=== PATIENT | male | born 1980 | race Caucasian/White ===

== ENCOUNTER → 2016-02-20 | Outpatient (CLI) | payer OTHER ==
[~2016-02-20] MED LIST: /DULO30CA OR; ADDE30CA PO; ADDE5TAB5 PO; ALLE25CA OR; AMPH10TA PO; ASPI32ECTA PO; BACL10TA2 PO; CELE-19 PO; CEPH500C PO; CLEO150C PO; CODE30TA3 PO; CYCL10TA PO; CYMB60CA3 PO; DEXT10TA2 PO; DILA4TAB PO; DIVA500T3 PO; DOCU10CA PO; DULO20CA OR; DULO30CA PO; ESTA2TAB PO; EXCETAB80 PO; GEMF600T PO; HYDR50CA2 PO; IBUP600T26 PO; IMIT6INJ SC; IMIT6KIT2 SC; LUNE2TAB OR; MELO7.5S PO; MELOPOW XX; METH75TA PO; NORC10TA2 PO; OXYC-517 PO; OXYC20TA21 PO; OXYC40TA12 PO; PAIN CREAM TOP; PAIN TOP; PERC10TA17 PO; PERC5TAB8 OR; PERC7.5T3 PO; PRAZ2CAP PO; ROBA750T4 PO; SENN-22 PO; SKEL-29 PO; SOMA350T PO; TRAM50TA2 OR; TRAZ50TA4 PO; TRIA-15 PO; TYLE325T5 PO; VALI10TA PO; VITA-171 PO; ZANA4TAB PO; [UNRECOGNIZED DRUG - CODE] PO; [UNRECOGNIZED DRUG - OTHER] OR; mobic OR
--- NOTE | 2016-02-27 00:44 | ECWPNPC ---
PATIENT NAME: SUSANNA CM : 1980 GENDER: MALE VISIT DATE: 02/20/2016 DISCHARGE DATE: 02/20/16 1534 VISIT LOCKED DATE TIME: PHYSICIAN: DURAN ALVES PHYSICIAN PAGER NO: TEXT [phone] [phone] RESOURCE: DURAN ALVES REASON FOR APPOINTMENT 1. NECK PAIN HISTORY OF PRESENT ILLNESS HISTORY OF PRESENT ILLNESS: PAIN THE PATIENT DESCRIBES THE PAIN... 35 YEAR OLD MALE PATIENT WITH HISTORY OF CHRONIC NECK PAIN. PATIENT DESCRIBES THE PAIN ACHING, BURNING, SHARP, STABBING, TENDER, THROBBING, SORE, SHOOTING, HAVING IT ALL THE TIME, AND IT COMES AND GOES WITH A PAIN SCORE OF 6/10. PATIENT REPORTS THAT SOMA HELPS WITH KEEPING THE MUSCLE SPASMS DOWN IN HIS BACK AREA. PATIENT REPORTS THAT HE NOW HAS A NEW PRIMARY CARE DOWN IN THE PR IN [place]. PATIENT INQUIRED WHETHER ANYTHING CAN BE DONE ABOUT THIS ARTERITIS. PATIENT REPORTS THAT HE HAS NUMBNESS IN HIS FEET AND HANDS. PATIENT STATES THAT SOMA ALSO HELPS HIM SLEEP AT NIGHT AND THE BUTRANS PATCH DOES HELP WITH KEEPING HIS PAIN LEVELS DOWN. PATIENT DENIES UNEXPLAINABLE WEIGHT LOSS, FEVER, CHILLS, NEW CHANGES ON HIS URINARY OR BOWEL CONTROL. FALL RISK SCREENING: SCREENING :NO FALLS IN THE PAST YEAR CURRENT MEDICATIONS TAKING SOMA 350 MG TABLET 1 TABLET NEEDED ORALLY BEFORE BEDTIME FOR SPASMS AND PAIN MDD1 TAKING TIZANIDINE HCL 2 MG TABLET 1 TABLET NEEDED ORALLY THREE TIMES A DAY FOR SPASMS AND PAIN MDD3 TAKING BUTRANS 5 MCG/HR PATCH WEEKLY 1 PATCH TO SKIN TRANSDERMAL ONCE PER WEEK TAKING IMITREX STATDOSE SYSTEM 6 MG/0.5ML SOLUTION AUTO-INJECTOR NEEDED AT ONSET OF A MIGRAINE, MAY REPEAT IN 2 HOURS SUBCUTANEOUS DAILY PRN TAKING REGLAN 5 MG TABLET ORALLY DIRECTED TAKING ROPINIROLE HCL 0.5 MG TABLET ORALLY BEFORE BEDTIME NOT-TAKING OXYCODONE HCL 5 MG CAPSULE 1 CAPSULE NEEDED ORALLY EVERY 4 HOURS NEEDED NOT-TAKING CUSTOM DO NOT USE OXYCODONE 10 MG TABLET 1-2 TABS P.O. Q6HR PRN NOT-TAKING OXYCODONE HCL 10 MG TABLET 1 ORALLY Q4H MDD 6 NOT-TAKING OXYCONTIN 40 MG TABLET EXTENDED RELEASE 12 HOUR 1 TABLET ORALLY TID MDD3 NOT-TAKING OXYCODONE HCL ER 40 MG TABLET ER 12 HOUR ABUSE-DETERRENT 1 TABLET ORALLY Q8H MDD3 NOT-TAKING OXYCODONE HCL ER 40 MG TABLET ER 12 HOUR ABUSE-DETERRENT 1 TABLET ORALLY EVERY 8 HRS MDD=3 CHRONIC PAIN MEDICATION LIST REVIEWED AND RECONCILED WITH THE PATIENT PAST MEDICAL HISTORY [place] [facility] [facility] S/P TBI () JUNE (NON-COMPLIANT WITH BIPAP 2/2 CLAUSTROPHOBIA) OD 09/22-- ADMITTED MRSA ABDOMEN 12/24 ALLERGIES SULFA (FOR ALLERGY USE ONLY): ANAPHYLAXIS AND "TURNS INTO A LOBSTER": ALLERGY LYRICA: SUICIDAL IDEATION: SIDE EFFECTS TOPAMAX: PRECIPITATES NEPHROLITHIASIS: CONTRAINDICATION SURGICAL HISTORY PERFORATED L EAR DRUM AGE 13 R HAND GANGLION CYSTECTOMY 02/2001 PRK SURGERY HERBIE EYES 2004 R SHOULDER X 4 REPAIR (LAST 2 [facility] BY [address]. PECK) 03/18, 01/15, 08/19, 12/21 VASECTOMY 2012 RIGHT MENISCAL TEAR REPAIR 08/2015 FAMILY HISTORY NO FAMILY HISTORY DOCUMENTED. SOCIAL HISTORY GENERAL: TOBACCO USE ARE YOU A:NONSMOKER LEARNING BARRIERS / SPECIAL NEEDS ORIENTED TO PLAN OF CARE: PATIENT, PAIN MANAGEMENT PATIENT, ORIENTED TO PLAN OF CARE: PATIENT, PAIN MANAGEMENT PATIENT. NEW PATIENT PAIN DIARY TODAY'S VISITNOTES FROM 0-10, WHAT LEVEL IS YOUR PAIN TODAY?0 PAIN CLINIC PFS, CLERGY, PUBLIC HEALTH REFERRALS PFS REFERRAL NEEDED?NO CLERGY REFERRAL NEEDED?NO PUBLIC HEALTH REFERRAL NEEDED?NO WAS THE PROVIDER NOTIFIED OF ANY PERTINENT INFO?NO PFS REFERRAL NEEDED?NO CLERGY REFERRAL NEEDED?NO PUBLIC HEALTH REFERRAL NEEDED?NO WAS THE PROVIDER NOTIFIED OF ANY PERTINENT INFO?NO HOSPITALIZATION/MAJOR DIAGNOSTIC PROCEDURE BEHAVIORAL HEALTH ADMISSION X 3 (2 AT [facility] MOST RECENT D/C WAS 07/16/14 REVIEW OF SYSTEMS CONSTITUTIONAL: ANY CHANGE IN YOUR MEDICAL CONDITION? NO . CHILLS NO . FEVER NO . INFECTION: DO YOU HAVE NEW INFECTIONS? NO . DO YOU HAVE HISTORY OF MRSA? NO . MUSCULOSKELETAL: ANY NEW PATTERNS OF PAIN OR NUMBNESS? YES, PT STATES THAT PAIN IN ARMS IS PROGRESSING AND PAIN IN LEGS HAS STARTED WITH TINGLING. . GASTROENTEROLOGY: ANY NEW CHANGE IN BOWEL CONTROL? NO . GENITOURINARY: ANY NEW CHANGE IN BLADDER CONTROL? NO . IS THERE A CHANCE YOU COULD BE ? NO . HEMATOLOGY/LYMPH: DO YOU TAKE ANY BLOOD THINNERS? (FOR EXAMPLE- COUMADIN, PLAVIX, AGGRENOX, PLATEL, PRADAXA, OR XARELTO) NO . WHEN WAS YOUR LAST DOSE? DATE: TIME: . NEUROLOGY: HAVE YOU FALLEN IN THE PAST 6 MONTHS? NO . ANY NEW EXTREMITY NUMBNESS OR WEAKNESS? NO . CARDIOLOGY: DO YOU HAVE A PACEMAKER OR DEFIBRILLATOR? NO . RESPIRATORY: HAVE YOU BEEN SICK IN THE PAST WEEK? NO . FEVER NO . FLU LIKE SYMPTOMS? NO . COUGH NO . INTEGUMENTARY: DO YOU HAVE ANY RASHES OR OPEN SORES? NO . ALLERGIC/IMMUNO: ARE YOU ALLERGIC TO SHELLFISH OR IV DYE? NO . ANY NEW ALLERGIES? NO . PSYCHIATRIC: DO YOU HAVE THOUGHTS OF HURTING YOURSELF OR SOMEONE ELSE? NO . ARE YOU ABUSED, NEGLECTED, OR IN AN UNSAFE ENVIRONMENT? NO . ENDOCRINOLOGY: ARE YOU DIABETIC? NO . OTHER: DO YOU NEED ANY PRESCRIPTIONS? NO . IF YES, PLEASE LIST: ____ . ANY NEW PROBLEMS WITH YOUR MEDICATIONS? NO . WHEN DID YOU LAST EAT? ____ . WHEN DID YOU LAST DRINK? ____ . WHAT DID YOU LAST DRINK? ____ . NAME OF PERSON DRIVING YOU HOME? ____ . DO YOU HAVE ANY OTHER QUESTIONS OR CONCERNS YES, BUTRANS PATCH IS NOT WORKING ON PAIN RELIEF. PT STATES THAT HE IS HAVING AN ELECTIVE SURGERY- February - HAVING A PLATE PLACED ON LEFT SIDE OF HEAD TO HELP WITH HEARING, AT ENT GROUP AT [facility]. PT STATES THAT HE IS A CURRENT SMOKER AND REFUSES ANY SMOKING CESSATION COUSELING AT THIS TIME. . REVIEWED BY: PROVIDER: DURAN ALVES MD . VITAL SIGNS WT 208.3 LBS, HT 68 IN, BMI 31.67 INDEX, BP 157/90 MM HG, HR 88 /MIN, RR 16 /MIN, TEMP 98.4 F, OXYGEN SAT % 96, SAFE IN ENV? (Y/N) Y, NA INITIALS TL 1420, REVIEWED BY: MARICEL. EXAMINATION : PATIENT IS ALERT O X 3 AND COOPERATIVE. PATIENT IS ABLE TO BENT HIS BACK AT 15 DEGREES AND EXTEND AT 5 DEGREES. TENDERNESS IN THE THORACIC PARASPINAL MUSCLE GROUP WITH BANDS OF TISSUES, RESTRICTION OF MOVEMENT AND PRESENCE OF TRIGGER POINTS. MRI OF THE LUMBAR SPINE DONE ON 07/11/14 SHOWS FACET ARTHROPATHY. MRI OF THE CERVICAL SPINE DONE ON 07/11/14 SHOWS MULTILEVEL DEGENERATIVE DISC DISEASE. 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 CM'S PAIN MANAGEMENT CASE. PATIENT BROUGHT IN HIS MEDICATION BOTTLES TODAY. PATIENT ADVISED TO SEE HIS PRIMARY CASE ABOUT HIS ARTERITIS. PATIENT ADVISED TO SEE HIS NEUROLOGIST ABOUT THE NUMBNESS HE IS HAVING IN HIS UPPER AND LOWER EXTREMITIES. PATIENT WILL CONTINUE ON THE SAME MEDICATION REGIMEN BEFORE AND WILL RECEIVE REFILLS TODAY. PATIENT WILL FOLLOW UP WITH ME IN THREE WEEKS. INSTRUCTIONS WERE GIVEN, QUESTIONS WERE ANSWERED, PATIENT REPORTS UNDERSTANDING AND AGREES WITH THE PLAN. I, DANO HICKEY, DOCUMENTED THE ABOVE INFORMATION ACTING A SCRIBE FOR DR. ALVES. I HAVE REVIEWED THE ABOVE DOCUMENT, WRITTEN BY DANO HICKEY SCRIBCate AND I VERIFY THAT IT IS ACCURATE. OTHERS REFILL SOMA TABLET, 350 MG, 1 TABLET NEEDED, ORALLY, BEFORE BEDTIME FOR SPASMS AND PAIN MDD1, 30 DAY(S), 20, REFILLS 0 REFILL TIZANIDINE HCL TABLET, 2 MG, 1 TABLET NEEDED, ORALLY, THREE TIMES A DAY FOR SPASMS AND PAIN MDD3, 90 DAYS, 255, REFILLS 0 REFILL BUTRANS PATCH WEEKLY, 5 MCG/HR, 1 PATCH TO SKIN, TRANSDERMAL, ONCE PER WEEK, 30 DAY(S), 4, REFILLS 0 PROCEDURE CODES FA211 ESTABILISHED PATIENT [facility] FACILITY CHARGE G8730 PAIN ASSESS POS TOOL F/U PLAN DOC G8427 DOC MEDS VERIFIED W/PT OR RE FOLLOW UP 3 WEEKS ELECTRONICALLY SIGNED BY DURAN ALVES MD ON 02/26/2016 AT 01:24 PM EST DISCLAIMER : THIS IS A VISIT SUMMARY EXTRACTED FROM THE [employer] CHART. IT IS NOT A COPY OF THE [employer] PROGRESS NOTE. MTDD
== END ==
LOC: M PAIN 14:20
PROVIDERS: ATTEND Anesthesiology
DX: M79.1 Myalgia (principal); M47.812 Spondylosis without myelopathy or radiculopathy, cervical region; M47.813 Spondylosis without myelopathy or radiculopathy, cervicothoracic region; M54.2 Cervicalgia; G89.29 Other chronic pain; Z79.899 Other long term (current) drug therapy; Z88.2 Allergy status to sulfonamides; Z88.8 Allergy status to other drugs, medicaments and biological substances

== ENCOUNTER → 2016-03-18 | Outpatient (CLI) | payer OTHER ==
--- NOTE | 2016-03-19 00:03 | ECWPNPC ---
PATIENT NAME: SUSANNA CM : 1980 GENDER: MALE VISIT DATE: 03/18/2016 DISCHARGE DATE: 03/18/16 1038 VISIT LOCKED DATE TIME: PHYSICIAN: DURAN ALVES PHYSICIAN PAGER NO: [phone] [phone] RESOURCE: DURAN ALVES REASON FOR APPOINTMENT 1. NECK AND BACK PAIN HISTORY OF PRESENT ILLNESS HISTORY OF PRESENT ILLNESS: PAIN THE PATIENT DESCRIBES THE PAIN... 35 YEAR OLD MALE PATIENT WITH HISTORY OF CHRONIC NECK AND BACK PAIN. PATIENT DESCRIBES THE PAIN ACHING, SHARP, STABBING, TENDER, THROBBING, SORE, SHOOTING, AND HAVING IT ALL THE TIME WITH A PAIN SCORE OF 6/10. PATIENT REPORTS HAVING EAR RECONSTRUCTIVE SURGERY ON 03/09/16 TO REPAIR HEARING LOSS AND STATES THAT HE IS STILL IN PAIN FROM THE SURGERY. PATIENT IS CURRENTLY USING BUTRANS, SOMA, AND TIZANIDINE. MR. CM REPORTS THAT THE BUTRANS' AND THE SOMA HELPS TO RELIEVE THE PAIN BUT BELIEVES THE TIZANIDINE IS NOT HELPING MUCH IT WAS. PATIENT STATES THAT HIS NECK IS CONSTANTLY IN PAIN AND MEDICATIONS AT THIS TIME ARE THE ONLY THING THAT HELPS TO RELIEVE THE PAIN. PATIENT DENIES UNEXPLAINABLE WEIGHT LOSS, FEVER, CHILLS, NEW CHANGES ON HIS URINARY OR BOWEL CONTROL. FALL RISK SCREENING: SCREENING :NO FALLS IN THE PAST YEAR CURRENT MEDICATIONS TAKING SOMA 350 MG TABLET 1 TABLET NEEDED ORALLY BEFORE BEDTIME FOR SPASMS AND PAIN MDD1 TAKING TIZANIDINE HCL 2 MG TABLET 1 TABLET NEEDED ORALLY THREE TIMES A DAY FOR SPASMS AND PAIN MDD3 TAKING BUTRANS 5 MCG/HR PATCH WEEKLY 1 PATCH TO SKIN TRANSDERMAL ONCE PER WEEK TAKING IMITREX STATDOSE SYSTEM 6 MG/0.5ML SOLUTION AUTO-INJECTOR NEEDED AT ONSET OF A MIGRAINE, MAY REPEAT IN 2 HOURS SUBCUTANEOUS DAILY PRN TAKING REGLAN 5 MG TABLET ORALLY DIRECTED TAKING BOTOX 200 UNIT SOLUTION RECONSTITUTED 31 INJECTIONS Q 90 DAYS, NOTES: 02/27/16 AT ID TAKING ROPINIROLE HCL 0.5 MG TABLET ORALLY BEFORE BEDTIME NOT-TAKING OXYCODONE HCL 5 MG CAPSULE 1 CAPSULE NEEDED ORALLY EVERY 4 HOURS NEEDED NOT-TAKING CUSTOM DO NOT USE OXYCODONE 10 MG TABLET 1-2 TABS P.O. Q6HR PRN NOT-TAKING OXYCODONE HCL 10 MG TABLET 1 ORALLY Q4H MDD 6 NOT-TAKING OXYCONTIN 40 MG TABLET EXTENDED RELEASE 12 HOUR 1 TABLET ORALLY TID MDD3 NOT-TAKING OXYCODONE HCL ER 40 MG TABLET ER 12 HOUR ABUSE-DETERRENT 1 TABLET ORALLY Q8H MDD3 NOT-TAKING OXYCODONE HCL ER 40 MG TABLET ER 12 HOUR ABUSE-DETERRENT 1 TABLET ORALLY EVERY 8 HRS MDD=3 CHRONIC PAIN MEDICATION LIST REVIEWED AND RECONCILED WITH THE PATIENT PAST MEDICAL HISTORY [facility] ([place] [facility] S/P TBI () JUNE (NON-COMPLIANT WITH BIPAP 2/2 CLAUSTROPHOBIA) OD 09/22-- ADMITTED MRSA ABDOMEN 12/24 ALLERGIES SULFA (FOR ALLERGY USE ONLY): ANAPHYLAXIS AND "TURNS INTO A LOBSTER": ALLERGY LYRICA: SUICIDAL IDEATION: SIDE EFFECTS TOPAMAX: PRECIPITATES NEPHROLITHIASIS: CONTRAINDICATION SOCIAL HISTORY GENERAL: TOBACCO USE ARE YOU A:CURRENT SMOKER HOW MANY CIGARETTES A DAY DO YOU SMOKE?11-20 HOW SOON AFTER YOU WAKE UP DO YOU SMOKE YOUR FIRST CIGARETTE?6-30 MIN HOW OFTEN DO YOU SMOKE CIGARETTES?EVERY DAY PATIENT COUNSELED ON THE DANGERS OF TOBACCO USE AND URGED TO QUIT: COUNCELED ON THE IMPORTANCE OF QUTITING. ARE YOU INTERESTED IN QUITTING?THINKING ABOUT QUITTING HAS INFORMATION ALREADY. LEARNING BARRIERS / SPECIAL NEEDS ORIENTED TO PLAN OF CARE: PATIENT, PAIN MANAGEMENT PATIENT, ORIENTED TO PLAN OF CARE: PATIENT, PAIN MANAGEMENT PATIENT. NEW PATIENT PAIN DIARY TODAY'S VISITNOTES FROM 0-10, WHAT LEVEL IS YOUR PAIN TODAY?0 PAIN CLINIC PFS, CLERGY, PUBLIC HEALTH REFERRALS PFS REFERRAL NEEDED?NO CLERGY REFERRAL NEEDED?NO PUBLIC HEALTH REFERRAL NEEDED?NO WAS THE PROVIDER NOTIFIED OF ANY PERTINENT INFO?NO PFS REFERRAL NEEDED?NO CLERGY REFERRAL NEEDED?NO PUBLIC HEALTH REFERRAL NEEDED?NO WAS THE PROVIDER NOTIFIED OF ANY PERTINENT INFO?NO REVIEW OF SYSTEMS CONSTITUTIONAL: ANY CHANGE IN YOUR MEDICAL CONDITION? YES, SURGERY LEFT EAR 03/09/16 AT THE ID IN [place] . CHILLS NO . FEVER NO . INFECTION: DO YOU HAVE NEW INFECTIONS? NO . DO YOU HAVE HISTORY OF MRSA? NO . MUSCULOSKELETAL: ANY NEW PATTERNS OF PAIN OR NUMBNESS? YES, LEFT EAR DUE TO SURGERY . GASTROENTEROLOGY: ANY NEW CHANGE IN BOWEL CONTROL? NO . GENITOURINARY: ANY NEW CHANGE IN BLADDER CONTROL? NO . IS THERE A CHANCE YOU COULD BE ? NO . HEMATOLOGY/LYMPH: DO YOU TAKE ANY BLOOD THINNERS? (FOR EXAMPLE- COUMADIN, PLAVIX, AGGRENOX, PLATEL, PRADAXA, OR XARELTO) NO . WHEN WAS YOUR LAST DOSE? DATE: TIME: . NEUROLOGY: HAVE YOU FALLEN IN THE PAST 6 MONTHS? YES, LATE JAN. OR EARLY FEB. FELL DOWN STAIRS. BUMPED HIS HEAD ON A CHAIR, NO LOSS OF CONSCIOUSNESS . ANY NEW EXTREMITY NUMBNESS OR WEAKNESS? NO . CARDIOLOGY: DO YOU HAVE A PACEMAKER OR DEFIBRILLATOR? NO . RESPIRATORY: HAVE YOU BEEN SICK IN THE PAST WEEK? NO . FEVER NO . FLU LIKE SYMPTOMS? NO . COUGH NO . INTEGUMENTARY: DO YOU HAVE ANY RASHES OR OPEN SORES? YES, HEALING INCISION BEHIND LEFT EAR . ALLERGIC/IMMUNO: ARE YOU ALLERGIC TO SHELLFISH OR IV DYE? NO . ANY NEW ALLERGIES? NO . PSYCHIATRIC: DO YOU HAVE THOUGHTS OF HURTING YOURSELF OR SOMEONE ELSE? NO . ARE YOU ABUSED, NEGLECTED, OR IN AN UNSAFE ENVIRONMENT? NO . ENDOCRINOLOGY: ARE YOU DIABETIC? NO . OTHER: DO YOU NEED ANY PRESCRIPTIONS? YES, FAIZA AND DES . IF YES, PLEASE LIST: ____ . ANY NEW PROBLEMS WITH YOUR MEDICATIONS? NO . WHEN DID YOU LAST EAT? ____ . WHEN DID YOU LAST DRINK? ____ . WHAT DID YOU LAST DRINK? ____ . NAME OF PERSON DRIVING YOU HOME? ____ . DO YOU HAVE ANY OTHER QUESTIONS OR CONCERNS YES, TIZANIDINE DOESN'T SEEM TO BE WORKING&NBSP;. REVIEWED BY: PROVIDER: DURAN ALVES MD . VITAL SIGNS WT 231.4 LBS, HT 68 IN, BMI 35.18 INDEX, BP 126/92 MM HG, HR 97 /MIN, RR 16 /MIN, TEMP 97.1 F, OXYGEN SAT % 97, NA INITIALS TL 0845, REVIEWED BY: ADPT WEIGHED ON SCALE-TL. EXAMINATION : PATIENT IS ALERT O X 3 AND COOPERATIVE. PATIENT IS ABLE TO BENT HIS BACK AT 15 DEGREES AND EXTEND AT 5 DEGREES. BANDS OF TISSUE, RESTRICTION OF MOVEMENT AND PRESENCE OF TRIGGER POINTS IN THE CERVICAL AREA. TENDERNESS IN THE THORACIC PARASPINAL MUSCLE GROUP WITH BANDS OF TISSUES, RESTRICTION OF MOVEMENT AND PRESENCE OF TRIGGER POINTS. MRI OF THE LUMBAR SPINE DONE ON 07/11/14 SHOWS FACET ARTHROPATHY. MRI OF THE CERVICAL SPINE DONE ON 07/11/14 SHOWS MULTILEVEL DEGENERATIVE DISC DISEASE. 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 WITHOUT MYELOPATHY OR RADICULOPATHY, CERVICOTHORACIC REGION - M47.813 SPONDYLOSIS WITHOUT MYELOPATHY OR RADICULOPATHY, LUMBAR REGION - M47.816 SPONDYLOSIS WITHOUT MYELOPATHY OR RADICULOPATHY, LUMBOSACRAL REGION - M47.817 CHRONIC PAIN SYNDROME - G89.4 TREATMENT MYALGIA REFILL TIZANIDINE HCL TABLET, 4 MG, 1 TABLET NEEDED, ORALLY, THREE TIMES A DAY FOR SPASMS AND PAIN MDD3, 30 DAYS, 90, REFILLS 2 REFILL SOMA TABLET, 350 MG, 1 TABLET NEEDED, ORALLY, BEFORE BEDTIME FOR SPASMS AND PAIN MDD1, 30 DAY(S), 20, REFILLS 0 REFILL BUTRANS PATCH WEEKLY, 7.5 MCG/HR, 1 PATCH TO SKIN, TRANSDERMAL, ONCE PER WEEK, 30 DAY(S), 4, REFILLS 0 NOTES: WE DISCUSSED SEVERAL ISSUES WITH MR. CM'S PAIN MANAGEMENT CASE. PATIENT WILL INCREASE THE BUTRANS' PATCH TO 7.5 DUE TO THE PATIENT REPORTING THAT IT DOES NOT HAVE THE SAME BENEFITS IT DID FROM WHEN HE ORIGINALLY STARTED. MR. CM WILL ALSO INCREASE THE TIZANIDINE TO 4 MG DUE TO THE PATIENT STATING THAT HIS MUSCLE SPASMS HAVE SLOWLY INCREASED. PATIENT BROUGHT MEDICATIONS TO TODAY'S VISIT. PATIENT DENIES ABUSE OF ANY MEDICATION, DENIES USE OF ILLEGAL SUBSTANCES, AND STATES THAT HE IS ONLY USING THE MEDICATION FOR PAIN MANAGEMENT. URINE TOXICOLOGY REPORT DONE ON 09/2015 SHOWS CONSISTENT RESULTS WITH THE PATIENT'S MEDICATION LIST. PATIENT REPORTS HAVING A LOT OF PAIN IN HIS LOWER BACK. AFTER VIEWING THE MRI AND WHERE THE PATIENT'S PAIN IS LOCATED I BELIEVE THE PATIENT WOULD BENEFIT FROM A LUMBAR FACET BLOCK. WE DISCUSSED THE RISKS, BENEFITS, AND ALTNERATIVES OF THE INJECTION AND THE PATIENT WOULD LIKE TO PROCEED. INSTRUCTIONS WERE GIVEN, QUESTIONS WERE ANSWERED, PATIENT REPORTS UNDERSTANDING AND AGREES WITH THE PLAN. I, ARIA CARDENAS, DOCUMENTED THE ABOVE INFORMATION ACTING A SCRIBE FOR DR. ALVES. I HAVE REVIEWED THE ABOVE DOCUMENT, WRITTEN BY ARIA BARBOZA AND I VERIFY THAT IT IS ACCURATE. PROCEDURE CODES FA211 ESTABILISHED PATIENT [facility] FACILITY CHARGE G8427 DOC MEDS VERIFIED W/PT OR RE G4311 PAIN ASSESS POS TOOL F/U PLAN DOC FOLLOW UP 3 WEEKS ELECTRONICALLY SIGNED BY DURAN ALVES MD ON 03/18/2016 AT 07:31 PM EST DISCLAIMER : THIS IS A VISIT SUMMARY EXTRACTED FROM THE [employer] CHART. IT IS NOT A COPY OF THE [employer] PROGRESS NOTE. [facility]
== END ==
LOC: M PAIN 08:40
PROVIDERS: ATTEND Anesthesiology
DX: Z09 Encounter for follow-up examination after completed treatment for conditions other than malignant neoplasm (principal); G89.29 Other chronic pain; G89.4 Chronic pain syndrome; M79.1 Myalgia; M47.812 Spondylosis without myelopathy or radiculopathy, cervical region; M47.813 Spondylosis without myelopathy or radiculopathy, cervicothoracic region; M47.816 Spondylosis without myelopathy or radiculopathy, lumbar region; M47.817 Spondylosis without myelopathy or radiculopathy, lumbosacral region; F43.10 Post-traumatic stress disorder, unspecified; G47.33 Obstructive sleep apnea (adult) (pediatric); F17.200 Nicotine dependence, unspecified, uncomplicated; Z88.2 Allergy status to sulfonamides; Z88.8 Allergy status to other drugs, medicaments and biological substances; Z79.891 Long term (current) use of opiate analgesic; Z79.899 Other long term (current) drug therapy; Z86.14 Personal history of Methicillin resistant Staphylococcus aureus infection; Z87.820 Personal history of traumatic brain injury; Z91.82 Personal history of military deployment

== ENCOUNTER → 2016-04-16 | Outpatient (CLI) | payer MEDICARE, OTHER ==
--- NOTE | 2016-04-25 23:20 | ECWPNPC ---
PATIENT NAME: SUSANNA CM : 1980 GENDER: MALE VISIT DATE: 04/16/2016 DISCHARGE DATE: 04/16/16 1542 VISIT LOCKED DATE TIME: PHYSICIAN: DURAN ALVES PHYSICIAN PAGER NO: TEXT JR [phone] RESOURCE: DURAN ALVES REASON FOR APPOINTMENT 1. NECK LOW BACK HISTORY OF PRESENT ILLNESS HISTORY OF PRESENT ILLNESS: PAIN THE PATIENT DESCRIBES THE PAIN... 35 YEAR OLD MALE PATIENT WITH HISTORY OF CHRONIC NECK AND BACK PAIN. PATIENT DESCRIBES THE PAIN ACHING, BURNING, SHARP, STABBING, TENDER, THROBBING, SORE, SHOOTING, IT COMES AND GOES, AND HAVING IT ALL THE TIME WITH A PAIN SCORE OF 4/10 ON TODAY'S VISIT. PATIENT REPORTS THAT HIS WHOLE BACK HURTS TODAY FROM THE NECK TO THE LOW BACK, AND THAT HIS RIGHT SHOULDER AND LEFT KNEE ALSO HURTS. PATIENT REPORTS THAT HE WILL HAVE HIS RIGHT SHOULDER MANIPULATED UNDER ANESTHESIA. PATIENT STATES THAT THE INCREASED DOSAGE OF TIZANIDINE HAS HELP WITH THE MUSCLE SPASMS AND PAIN. PATIENT REPORTS THAT HIS BUTRANS PATCH HAS A HARD TIME STAYING ON HIS BODY., PATIENT DENIES UNEXPLAINABLE WEIGHT LOSS, FEVER, CHILLS, NEW CHANGES ON HIS URINARY OR BOWEL CONTROL. FALL RISK SCREENING: SCREENING :ONE FALL WITHOUT INJURY IN THE PAST YEAR CURRENT MEDICATIONS TAKING IMITREX STATDOSE SYSTEM 6 MG/0.5ML SOLUTION AUTO-INJECTOR NEEDED AT ONSET OF A MIGRAINE, MAY REPEAT IN 2 HOURS SUBCUTANEOUS DAILY PRN TAKING REGLAN 5 MG TABLET ORALLY DIRECTED TAKING BOTOX 200 UNIT SOLUTION RECONSTITUTED 31 INJECTIONS Q 90 DAYS, NOTES: 02/27/16 AT [place] TAKING ROPINIROLE HCL 0.5 MG TABLET ORALLY BEFORE BEDTIME TAKING TIZANIDINE HCL 4 MG TABLET 1 TABLET NEEDED ORALLY THREE TIMES A DAY FOR SPASMS AND PAIN MDD3 TAKING SOMA 350 MG TABLET 1 TABLET NEEDED ORALLY BEFORE BEDTIME FOR SPASMS AND PAIN MDD1 TAKING BUTRANS 7.5 MCG/HR PATCH WEEKLY 1 PATCH TO SKIN TRANSDERMAL ONCE PER WEEK TAKING REMERON 30 MG TABLET 1 TAB ORALLY DAILY TAKING CLONIDINE HCL 0.2 MG TABLET 1 TABLET ORALLY TWICE A DAY NOT-TAKING CUSTOM DO NOT USE OXYCODONE 10 MG TABLET 1-2 TABS P.O. Q6HR PRN NOT-TAKING OXYCODONE HCL 5 MG CAPSULE 1 CAPSULE NEEDED ORALLY EVERY 4 HOURS NEEDED NOT-TAKING OXYCODONE HCL 10 MG TABLET 1 ORALLY Q4H MDD 6 NOT-TAKING OXYCONTIN 40 MG TABLET EXTENDED RELEASE 12 HOUR 1 TABLET ORALLY TID MDD3 NOT-TAKING OXYCODONE HCL ER 40 MG TABLET ER 12 HOUR ABUSE-DETERRENT 1 TABLET ORALLY Q8H MDD3 NOT-TAKING OXYCODONE HCL ER 40 MG TABLET ER 12 HOUR ABUSE-DETERRENT 1 TABLET ORALLY EVERY 8 HRS MDD=3 CHRONIC PAIN DISCONTINUED CLONIDINE HCL DISCONTINUED CLONIDINE HCL (ANALGESIA) DISCONTINUED CLONIDINE HCL DISCONTINUED CLONIDINE HCL (ANALGESIA) DISCONTINUED REMERON MEDICATION LIST REVIEWED AND RECONCILED WITH THE PATIENT PAST MEDICAL HISTORY [place] ([place] [facility]) S/P TBI () JUNE (NON-COMPLIANT WITH BIPAP 03/12 CLAUSTROPHOBIA) OD 09/22-- ADMITTED MRSA ABDOMEN 12/24 ALLERGIES SULFA (FOR ALLERGY USE ONLY): ANAPHYLAXIS AND "TURNS INTO A LOBSTER": ALLERGY LYRICA: SUICIDAL IDEATION: SIDE EFFECTS TOPAMAX: PRECIPITATES NEPHROLITHIASIS: CONTRAINDICATION SURGICAL HISTORY PERFORATED L EAR DRUM AGE 13 R HAND GANGLION CYSTECTOMY 02/2001 PRK SURGERY HERBIE EYES 2004 R SHOULDER X 4 REPAIR (LAST 2 AT [facility] BY DR. PECK) 03/18, 01/15, 08/19, 12/21 VASECTOMY 2013 RIGHT MENISCAL TEAR REPAIR 08/2015 FAMILY HISTORY NO FAMILY HISTORY DOCUMENTED. SOCIAL HISTORY GENERAL: TOBACCO USE ARE YOU A:CURRENT SMOKER PATIENT COUNSELED ON THE DANGERS OF TOBACCO USE AND URGED TO QUIT:04/16/2016 ARE YOU INTERESTED IN QUITTING?THINKING ABOUT QUITTING COUNSELED THE PATIENT ON SMOKING CESSATION, EDUCATION [id number]/09/2017 LEARNING BARRIERS / SPECIAL NEEDS ORIENTED TO PLAN OF CARE: PATIENT, PAIN MANAGEMENT PATIENT, ORIENTED TO PLAN OF CARE: PATIENT, PAIN MANAGEMENT PATIENT, ORIENTED TO PLAN OF CARE: PATIENT, PAIN MANAGEMENT PATIENT, ORIENTED TO PLAN OF CARE: PATIENT, PAIN MANAGEMENT PATIENT. NEW PATIENT PAIN DIARY TODAY'S VISITNOTES FROM 0-10, WHAT LEVEL IS YOUR PAIN TODAY?0 PAIN CLINIC PFS, CLERGY, PUBLIC HEALTH REFERRALS PFS REFERRAL NEEDED?NO CLERGY REFERRAL NEEDED?NO PUBLIC HEALTH REFERRAL NEEDED?NO WAS THE PROVIDER NOTIFIED OF ANY PERTINENT INFO?NO PFS REFERRAL NEEDED?NO CLERGY REFERRAL NEEDED?NO PUBLIC HEALTH REFERRAL NEEDED?NO WAS THE PROVIDER NOTIFIED OF ANY PERTINENT INFO?NO PFS REFERRAL NEEDED?NO CLERGY REFERRAL NEEDED?NO PUBLIC HEALTH REFERRAL NEEDED?NO WAS THE PROVIDER NOTIFIED OF ANY PERTINENT INFO?NO PFS REFERRAL NEEDED?NO CLERGY REFERRAL NEEDED?NO PUBLIC HEALTH REFERRAL NEEDED?NO WAS THE PROVIDER NOTIFIED OF ANY PERTINENT INFO?NO HOSPITALIZATION/MAJOR DIAGNOSTIC PROCEDURE BEHAVIORAL HEALTH ADMISSION X 3 (2 AT [facility], [facility] [place]) MOST RECENT D/C WAS 07/16/14 REVIEW OF SYSTEMS CONSTITUTIONAL: ANY CHANGE IN YOUR MEDICAL CONDITION? NO . CHILLS NO . FEVER NO . INFECTION: DO YOU HAVE NEW INFECTIONS? NO . DO YOU HAVE HISTORY OF MRSA? NO . MUSCULOSKELETAL: ANY NEW PATTERNS OF PAIN OR NUMBNESS? NO . GASTROENTEROLOGY: ANY NEW CHANGE IN BOWEL CONTROL? NO . GENITOURINARY: ANY NEW CHANGE IN BLADDER CONTROL? NO . IS THERE A CHANCE YOU COULD BE ? NO . HEMATOLOGY/LYMPH: DO YOU TAKE ANY BLOOD THINNERS? (FOR EXAMPLE- COUMADIN, PLAVIX, AGGRENOX, PLATEL, PRADAXA, OR XARELTO) NO . WHEN WAS YOUR LAST DOSE? DATE: TIME: . NEUROLOGY: HAVE YOU FALLEN IN THE PAST 6 MONTHS? YES, FELL DOWN STAIRS . ANY NEW EXTREMITY NUMBNESS OR WEAKNESS? NO . CARDIOLOGY: DO YOU HAVE A PACEMAKER OR DEFIBRILLATOR? NO . RESPIRATORY: HAVE YOU BEEN SICK IN THE PAST WEEK? NO . FEVER NO . FLU LIKE SYMPTOMS? NO . COUGH NO . INTEGUMENTARY: DO YOU HAVE ANY RASHES OR OPEN SORES? NO . ALLERGIC/IMMUNO: ARE YOU ALLERGIC TO SHELLFISH OR IV DYE? NO . ANY NEW ALLERGIES? NO . PSYCHIATRIC: DO YOU HAVE THOUGHTS OF HURTING YOURSELF OR SOMEONE ELSE? NO . ARE YOU ABUSED, NEGLECTED, OR IN AN UNSAFE ENVIRONMENT? NO . ENDOCRINOLOGY: ARE YOU DIABETIC? NO . OTHER: DO YOU NEED ANY PRESCRIPTIONS? YES . IF YES, PLEASE LIST: ____BUTRANS,SOMA, TIZANTIDINE . ANY NEW PROBLEMS WITH YOUR MEDICATIONS? NO . WHEN DID YOU LAST EAT? ____ . WHEN DID YOU LAST DRINK? ____ . WHAT DID YOU LAST DRINK? ____ . NAME OF PERSON DRIVING YOU HOME? ____ . DO YOU HAVE ANY OTHER QUESTIONS OR CONCERNS NO . REVIEWED BY: PROVIDER: DURAN ALVES MD . VITAL SIGNS WT 236 LBS, HT 68 IN, BMI 35.88 INDEX, BP 127/88 MM HG, HR 80 /MIN, RR 16 /MIN, TEMP 97.6 F, OXYGEN SAT % 93%, NA INITIALS SC 14:02, REVIEWED BY: VD. EXAMINATION : PATIENT IS ALERT O X 3 AND COOPERATIVE. PATIENT HAS TENDERNESS IN THE BILATERAL LUMBAR FACET JOINTS. THERE IS TENDERNESS IN THE CERVICAL PARASPINAL MUSCLE GROUP. MRI OF THE LUMBAR SPINE DONE ON 07/11/14 SHOWS FACET ARTHROPATHY. MRI OF THE CERVICAL SPINE DONE ON 07/11/14 SHOWS MULTILEVEL DEGENERATIVE DISC DISEASE. 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 CM'S PAIN MANAGEMENT CASE. AT THIS TIME I WILL REFILL TIZANIDINE, SOMA, AND BUTRANS PATCH FOR THE PATIENT TODAY. ALSO I WILL WRITE A SCRIPT FOR [facility]. AFTER REVIEWING THE MRI'S AND EXAMINING THE PATIENT, HE IS A GOOD CANDIDATE FOR A LUMBAR FACET BLOCK. WE DISCUSSED THE RISK, BENEFITS, AND ALTERNATIVES AND THE PATIENT WOULD LIKE TO PROCEED. PATIENT WILL BE BOOKED PENDING APPROVAL. PATIENT TO FOLLOW UP WITH ME IN 2 WEEKS. INSTRUCTIONS WERE GIVEN, QUESTIONS WERE ANSWERED, PATIENT REPORTS UNDERSTANDING AND AGREES WITH THE PLAN. I, DANO HICKEY, DOCUMENTED THE ABOVE INFORMATION ACTING A SCRIBE FOR DR. ALVES. I HAVE REVIEWED THE ABOVE DOCUMENT, WRITTEN BY DANO BARBOZA AND I VERIFY THAT IT IS ACCURATE. OTHERS START NEXCARE TEGADERM 4"X4-3/4" MISCELLANEOUS, -, DIRECTED, TOPICALLY, WEEKLY, 30 DAY(S), 1, REFILLS 1 PROCEDURE CODES FA211 ESTABILISHED PATIENT [facility] CHARGE G8730 PAIN ASSESS POS TOOL F/U PLAN DOC G8427 DOC MEDS VERIFIED W/PT OR RE DISPOSITION & COMMUNICATION FOLLOW UP 2 WEEKS ELECTRONICALLY SIGNED BY DURAN ALVES MD ON 04/25/2016 AT 09:24 PM EDT DISCLAIMER : THIS IS A VISIT SUMMARY EXTRACTED FROM THE [email or web address] & See CHART. IT IS NOT A COPY OF THE [email or web address] & See PROGRESS NOTE. CHRIST
== END ==
LOC: M PAIN 13:40
PROVIDERS: ATTEND Anesthesiology
DX: Z09 Encounter for follow-up examination after completed treatment for conditions other than malignant neoplasm (principal); G89.29 Other chronic pain; M79.1 Myalgia; M54.5 Low back pain; M47.816 Spondylosis without myelopathy or radiculopathy, lumbar region; M47.817 Spondylosis without myelopathy or radiculopathy, lumbosacral region; M47.812 Spondylosis without myelopathy or radiculopathy, cervical region; M47.813 Spondylosis without myelopathy or radiculopathy, cervicothoracic region; F43.10 Post-traumatic stress disorder, unspecified; G47.33 Obstructive sleep apnea (adult) (pediatric); F17.200 Nicotine dependence, unspecified, uncomplicated; Z87.820 Personal history of traumatic brain injury; Z88.2 Allergy status to sulfonamides; Z88.8 Allergy status to other drugs, medicaments and biological substances; Z79.891 Long term (current) use of opiate analgesic; Z79.899 Other long term (current) drug therapy

== ENCOUNTER → 2016-05-13 | Outpatient (CLI) | payer OTHER, MEDICARE ==
[~2016-05-13] MED LIST changes: -OXYC40TA12 PO; +OXYC40TA13 PO
--- NOTE | 2016-05-26 00:38 | ECWPNPC ---
PATIENT NAME: SUSANNA CM : 1980 GENDER: MALE VISIT DATE: 05/13/2016 DISCHARGE DATE: 05/13/16 1618 VISIT LOCKED DATE TIME: PHYSICIAN: DURAN ALVES PHYSICIAN PAGER NO: XYTF MW [phone] RESOURCE: DURAN ALVES REASON FOR APPOINTMENT 1. NECK/BACK PAIN HISTORY OF PRESENT ILLNESS GENERAL: 36 YEAR OLD MALE PATIENT WITH HISTORY OF CHRONIC LOW BACK AND NECK PAIN. PATIENT DESCRIBES THE PAIN ACHING, BURNING, SHARP, STABBING, THROBBING, SORE, SHOOTING, AND HAVING IT ALL THE TIME WITH A PAIN SCORE OF 5/10. PATIENT IS CURRENTLY USING BUTRANS PATCH, SOMA, AND TIZANIDINE TO AID IN PAIN RELIEF. MR. CM STATES THAT THE MEDICATION AIDS IN PAIN RELIEF BUT HE STILL HAS QUITE A BIT OF PAIN. PATIENT REPORTS THAT SINCE USING THE BUTRANS PATCH HE HAS HAD LESS MIGRAINES. PATIENT STATES THAT ANY TYPE OF ACTIVITY INCREASES THE PAIN IN HIS NECK AND LOWER BACK INCLUDING WALKING, STANDING, AND WALKING UP STAIRS. MR. CM REPORTS HAVING A MANIPULATION SURGERY ON Wednesday05/18/16 ON THE SHOULDER. PATIENT DENIES UNEXPLAINABLE WEIGHT LOSS, FEVER, CHILLS, NEW CHANGES ON HIS URINARY OR BOWEL CONTROL. HISTORY OF PRESENT ILLNESS: PAIN THE PATIENT DESCRIBES THE PAIN... FALL RISK SCREENING: SCREENING :NO FALLS IN THE PAST YEAR CURRENT MEDICATIONS TAKING NEXCARE TEGADERM 4"X4-3/4" - MISCELLANEOUS DIRECTED TOPICALLY WEEKLY TAKING TIZANIDINE HCL 4 MG TABLET 1 TABLET NEEDED ORALLY THREE TIMES A DAY FOR SPASMS AND PAIN MDD3 TAKING SOMA 350 MG TABLET 1 TABLET NEEDED ORALLY BEFORE BEDTIME FOR SPASMS AND PAIN MDD1 TAKING BUTRANS 7.5 MCG/HR PATCH WEEKLY 1 PATCH TO SKIN TRANSDERMAL ONCE PER WEEK TAKING IMITREX STATDOSE SYSTEM 6 MG/0.5ML SOLUTION AUTO-INJECTOR NEEDED AT ONSET OF A MIGRAINE, MAY REPEAT IN 2 HOURS SUBCUTANEOUS DAILY PRN TAKING REGLAN 5 MG TABLET ORALLY DIRECTED TAKING BOTOX 200 UNIT SOLUTION RECONSTITUTED 31 INJECTIONS Q 90 DAYS, NOTES: 02/27/16 AT [place] TAKING ROPINIROLE HCL 0.5 MG TABLET ORALLY BEFORE BEDTIME NOT-TAKING REMERON 30 MG TABLET 1 TAB ORALLY DAILY NOT-TAKING CLONIDINE HCL 0.2 MG TABLET 1 TABLET ORALLY TWICE A DAY NOT-TAKING CUSTOM DO NOT USE OXYCODONE 10 MG TABLET 1-2 TABS P.O. Q6HR PRN NOT-TAKING OXYCODONE HCL 5 MG CAPSULE 1 CAPSULE NEEDED ORALLY EVERY 4 HOURS NEEDED NOT-TAKING OXYCODONE HCL 10 MG TABLET 1 ORALLY Q4H MDD 6 NOT-TAKING OXYCONTIN 40 MG TABLET EXTENDED RELEASE 12 HOUR 1 TABLET ORALLY TID MDD3 NOT-TAKING OXYCODONE HCL ER 40 MG TABLET ER 12 HOUR ABUSE-DETERRENT 1 TABLET ORALLY Q8H MDD3 NOT-TAKING OXYCODONE HCL ER 40 MG TABLET ER 12 HOUR ABUSE-DETERRENT 1 TABLET ORALLY EVERY 8 HRS MDD=3 CHRONIC PAIN MEDICATION LIST REVIEWED AND RECONCILED WITH THE PATIENT PAST MEDICAL HISTORY [facility] ([place] [facility] S/P TBI () JUNE (NON-COMPLIANT WITH BIPAP / CLAUSTROPHOBIA) OD 09/22-- ADMITTED MRSA ABDOMEN 12/24 ALLERGIES SULFA (FOR ALLERGY USE ONLY): ANAPHYLAXIS AND "TURNS INTO A LOBSTER": ALLERGY LYRICA: SUICIDAL IDEATION: SIDE EFFECTS TOPAMAX: PRECIPITATES NEPHROLITHIASIS: CONTRAINDICATION SURGICAL HISTORY PERFORATED L EAR DRUM AGE 13 R HAND GANGLION CYSTECTOMY 02/2001 PRK SURGERY HERBIE EYES 2004 R SHOULDER X 4 REPAIR (LAST 2 AT [facility] BY DR. PECK) 03/18, 01/15, 08/19, 12/21 VASECTOMY 2012 RIGHT MENISCAL TEAR REPAIR 08/2015 LEFT EAR BONE REPLACEMENT 03/09/2016 FAMILY HISTORY FATHER: 65 YRS, DIAGNOSED WITH CANCER MOTHER: ALIVE FATHER ON 05/04/16, HX OF [place], OF [place]. SOCIAL HISTORY GENERAL: TOBACCO USE ARE YOU A:CURRENT SMOKER PATIENT COUNSELED ON THE DANGERS OF TOBACCO USE AND URGED TO QUIT:05/13/2016 ARE YOU INTERESTED IN QUITTING?THINKING ABOUT QUITTING COUNSELED THE PATIENT ON SMOKING CESSATION, EDUCATION [id number]/05/2017 CAFFEINE CAFFEINE USE?YES HOW OFTEN AND HOW MUCH? SEVERAL PER DAY PAIN CLINIC PFS, CLERGY, PUBLIC HEALTH REFERRALS PFS REFERRAL NEEDED?NO CLERGY REFERRAL NEEDED?NO PUBLIC HEALTH REFERRAL NEEDED?NO WAS THE PROVIDER NOTIFIED OF ANY PERTINENT INFO?YES REVIEWED BY: MARICEL. PATIENT: ____. HOSPITALIZATION/MAJOR DIAGNOSTIC PROCEDURE BEHAVIORAL HEALTH ADMISSION X 3 (2 [facility] MOST RECENT D/C WAS 07/16/14 REVIEW OF SYSTEMS CONSTITUTIONAL: ANY CHANGE IN YOUR MEDICAL CONDITION? NO . CHILLS NO . FEVER NO . INFECTION: DO YOU HAVE NEW INFECTIONS? NO . DO YOU HAVE HISTORY OF MRSA? NO . MUSCULOSKELETAL: ANY NEW PATTERNS OF PAIN OR NUMBNESS? NO . GASTROENTEROLOGY: ANY NEW CHANGE IN BOWEL CONTROL? NO . GENITOURINARY: ANY NEW CHANGE IN BLADDER CONTROL? NO . IS THERE A CHANCE YOU COULD BE ? NO . HEMATOLOGY/LYMPH: DO YOU TAKE ANY BLOOD THINNERS? (FOR EXAMPLE- COUMADIN, PLAVIX, AGGRENOX, PLATEL, PRADAXA, OR XARELTO) NO . WHEN WAS YOUR LAST DOSE? DATE: TIME: . NEUROLOGY: HAVE YOU FALLEN IN THE PAST 6 MONTHS? YES, PT STATES THAT HE FELL DOWN STAIRS AT HOME, NO REPORT TO ED . ANY NEW EXTREMITY NUMBNESS OR WEAKNESS? NO . CARDIOLOGY: DO YOU HAVE A PACEMAKER OR DEFIBRILLATOR? NO . RESPIRATORY: HAVE YOU BEEN SICK IN THE PAST WEEK? NO . FEVER NO . FLU LIKE SYMPTOMS? NO . COUGH NO . INTEGUMENTARY: DO YOU HAVE ANY RASHES OR OPEN SORES? NO . ALLERGIC/IMMUNO: ARE YOU ALLERGIC TO SHELLFISH OR IV DYE? NO . ANY NEW ALLERGIES? NO . PSYCHIATRIC: DO YOU HAVE THOUGHTS OF HURTING YOURSELF OR SOMEONE ELSE? NO . ARE YOU ABUSED, NEGLECTED, OR IN AN UNSAFE ENVIRONMENT? NO . ENDOCRINOLOGY: ARE YOU DIABETIC? NO . OTHER: DO YOU NEED ANY PRESCRIPTIONS? YES, BUTRANS, SOMA AND TIZANIDINE SCRIPTS FILLED . IF YES, PLEASE LIST: ____ . ANY NEW PROBLEMS WITH YOUR MEDICATIONS? NO . WHEN DID YOU LAST EAT? ____ . WHEN DID YOU LAST DRINK? ____ . WHAT DID YOU LAST DRINK? ____ . NAME OF PERSON DRIVING YOU HOME? ____ . DO YOU HAVE ANY OTHER QUESTIONS OR CONCERNS PT STATES THAT HE IS A CURRENT SMOKER, REFUSING ANY SMOKING CESSATION COUSELING AT THIS TIME. PT STATES THAT HE IS GOING TO ASK DANNA SOLER FOR CHANTIX SCRIPT. PT STATES THAT HE IS SCHEDULED FOR SHOULDER MANIPULATION ON Wednesday05/18/16 . REVIEWED BY: PROVIDER: . VITAL SIGNS WT 230.0 LBS, HT 68 IN, BMI 34.97 INDEX, BP 129/88 MM HG, HR 104 /MIN, RR 16 /MIN, TEMP 98.6 F, OXYGEN SAT % 96%, SAFE IN ENV? (Y/N) Y, NA INITIALS TL 1420, REVIEWED BY: MARICEL. EXAMINATION GENERAL: PATIENT IS ALERT O X 3 AND COOPERATIVE. PATIENT HAS TENDERNESS IN THE BILATERAL LUMBAR FACET JOINTS. THERE IS TENDERNESS IN THE CERVICAL PARASPINAL MUSCLE GROUP. MRI OF THE LUMBAR SPINE DONE ON 07/11/14 SHOWS FACET ARTHROPATHY. MRI OF THE CERVICAL SPINE DONE ON 07/11/14 SHOWS MULTILEVEL DEGENERATIVE DISC DISEASE. ASSESSMENTS MYALGIA - M79.1 (PRIMARY) LOW BACK PAIN - M54.5 SPONDYLOSIS WITHOUT MYELOPATHY OR RADICULOPATHY, LUMBAR REGION - M47.816 SPONDYLOSIS WITHOUT MYELOPATHY OR RADICULOPATHY, LUMBOSACRAL REGION - M47.817 TREATMENT MYALGIA REFILL SOMA TABLET, 350 MG, 1 TABLET NEEDED, ORALLY (CODE D FOR CHRONIC PAIN), BEFORE BEDTIME FOR SPASMS AND PAIN MDD1, 60 DAYS, 40, REFILLS 0 REFILL TIZANIDINE HCL TABLET, 4 MG, 1 TABLET NEEDED, ORALLY, THREE TIMES A DAY FOR SPASMS AND PAIN MDD3, 30 DAYS, 90, REFILLS 2 REFILL BUTRANS PATCH WEEKLY, 7.5 MCG/HR, 1 PATCH TO SKIN, TRANSDERMAL CODE D FOR CHRONIC PAIN), ONCE PER WEEK, 60 DAYS, 8, REFILLS 0 START TIZANIDINE HCL TABLET, 4 MG, 1 TABLET NEEDED, ORALLY NEEDED, THREE TIMES A DAY FOR SPASMS MDD3, 90 DAYS, 270, REFILLS 0 NOTES: WE DISCUSSED SEVERAL ISSUES WITH MR. CM'S PAIN MANAGEMENT CASE. AT THIS TIME THE PATIENT WILL CONTINUE WITH THE SAME MEDICATION REGIME BEFORE. PATIENT REPORTS THE MEDICATION KEEPING HIM MOBILE AND FUNCTIONAL AT THIS TIME. PATIENT DENIES ABUSE OF ANY MEDICATION, DENIES USE OF ILLEGAL SUBSTANCE, AND STATES THAT HE IS ONLY USING THE MEDICATION FOR PAIN MANAGEMENT. URINE TOXICOLOGY REPORT DONE ON 09/27/2015 SHOWS CONSISTENT RESULTS WITH THE PATIENTS MEDICATION LIST. MR. CM REPORTS HAVING A MANIPULATION DONE ON HIS SHOULDER THE FOLLOWING WEDNESDAY. PATIENT STATES THAT AT THIS TIME HIS LOWER BACK IS IN SEVERE PAIN. AFTER VIEWING THE PATIENT AND WHERE THE PAIN IS LOCATED I WOULD LIKE TO PROCEED WITH A LUMBAR FACET BLOCK. WE DISCUSSED THE RISKS, BENENFITS, AND ALTNERATIVES OF THE INJECTION AND THE PATIENT WOULD LIKE TO PROCEED AT THIS TIME. INSTRUCTIONS WERE GIVEN, QUESTIONS WERE ANSWERED, PATIENT REPORTS UNDERSTANDING AND AGREES WITH THE PLAN. I, ARIA CARDENAS, DOCUMENTED THE ABOVE INFORMATION ACTING A SCRIBE FOR DR. ALEVS. I HAVE REVIEWED THE ABOVE DOCUMENT, WRITTEN BY ARIA BARBOZA AND I VERIFY THAT IT IS ACCURATE. PROCEDURE CODES G8427 DOC MEDS VERIFIED W/PT OR RE G8730 PAIN ASSESS POS TOOL F/U PLAN DOC FA211 ESTABILISHED PATIENT [facility] CHARGE DISPOSITION & COMMUNICATION FOLLOW UP 4 WEEKS ELECTRONICALLY SIGNED BY DURAN ALVES MD ON 05/25/2016 AT 12:46 PM EDT DISCLAIMER : THIS IS A VISIT SUMMARY EXTRACTED FROM THE [employer] [facility] CHART. IT IS NOT A COPY OF THE [employer] [facility] PROGRESS NOTE. MTDD
== END ==
LOC: M PAIN 14:20
PROVIDERS: ATTEND Anesthesiology
DX: M79.1 Myalgia (principal); M54.5 Low back pain; M47.816 Spondylosis without myelopathy or radiculopathy, lumbar region; M47.817 Spondylosis without myelopathy or radiculopathy, lumbosacral region; M54.2 Cervicalgia; G89.29 Other chronic pain; Z79.891 Long term (current) use of opiate analgesic; Z79.899 Other long term (current) drug therapy; F17.210 Nicotine dependence, cigarettes, uncomplicated; Z88.2 Allergy status to sulfonamides; Z88.8 Allergy status to other drugs, medicaments and biological substances

== ENCOUNTER → 2016-08-12 | Outpatient (CLI) | payer MEDICARE, OTHER ==
[~2016-08-12] MED LIST changes: +ADDE1TAB14 PO; -ADDE30CA PO; +ADDE30CA3 PO; -ADDE5TAB5 PO; +ASPI325T24 PO; -ASPI32ECTA PO; -CELE-19 PO; +CELE1CAP4 PO; -DILA4TAB PO; +DILA4TAB13 PO; +IBUP-1022 PO; -IBUP600T26 PO; -NORC10TA2 PO; +NORC10TA21 PO; +NUVI250T5 PO; -OXYC20TA21 PO; +OXYC20TA40 PO; -OXYC40TA13 PO; +OXYC40TA29 PO; -PERC10TA17 PO; +PERC10TA26 PO; +PERC7.5T11 PO; -PERC7.5T3 PO; -SKEL-29 PO; +SKEL800T97 PO; +TRAZ50TA11 PO; -TRAZ50TA4 PO; -TRIA-15 PO; +TRIA0.2571 PO; -[UNRECOGNIZED DRUG - CODE] PO
--- NOTE | 2016-08-23 23:58 | ECWPNPC ---
PATIENT NAME: SUSANNA CM : 1980 GENDER: MALE VISIT DATE: 08/12/2016 DISCHARGE DATE: 08/12/16 1428 VISIT LOCKED DATE TIME: PHYSICIAN: DURAN ALVES PHYSICIAN PAGER NO: TEXT OY [phone] RESOURCE: DURAN ALVES REASON FOR APPOINTMENT 1. NECK/BACK PAIN HISTORY OF PRESENT ILLNESS HISTORY OF PRESENT ILLNESS: PAIN THE PATIENT DESCRIBES THE PAIN... 36 YEAR OLD MALE PATIENT WITH HISTORY OF CHRONIC LOW BACK AND NECK PAIN. PATIENT DESCRIBES THE PAIN ACHING, BURNING, SHARP, STABBING, THROBBING, SORE, SHOOTING, AND HAVING IT ALL THE TIME WITH A PAIN SCORE OF 5/10. PATIENT IS CURRENTLY USING BUTRANS PATCH, SOMA, AND TIZANIDINE TO AID IN PAIN RELIEF. MR. MC STATES THAT THE MEDICATION AIDS IN PAIN RELIEF BUT HE STILL HAS QUITE A BIT OF PAIN. PATIENT REPORTS THAT SINCE USING THE BUTRANS PATCH HE HAS HAD LESS MIGRAINES. PATIENT STATES THAT ANY TYPE OF ACTIVITY INCREASES THE PAIN IN HIS NECK AND LOWER BACK INCLUDING WALKING, STANDING, AND WALKING UP STAIRS. PATIENT DENIES UNEXPLAINABLE WEIGHT LOSS, FEVER, CHILLS, NEW CHANGES ON HIS URINARY OR BOWEL CONTROL. FALL RISK SCREENING: SCREENING :NO FALLS IN THE PAST YEAR CURRENT MEDICATIONS TAKING NEXCARE TEGADERM 4"X4-3/4" - MISCELLANEOUS DIRECTED TOPICALLY WEEKLY TAKING IMITREX STATDOSE SYSTEM 6 MG/0.5ML SOLUTION AUTO-INJECTOR NEEDED AT ONSET OF A MIGRAINE, MAY REPEAT IN 2 HOURS SUBCUTANEOUS DAILY PRN TAKING REGLAN 5 MG TABLET ORALLY DIRECTED TAKING BOTOX 200 UNIT SOLUTION RECONSTITUTED 31 INJECTIONS Q 90 DAYS, NOTES: 02/27/16 AT [place] TAKING ROPINIROLE HCL 0.5 MG TABLET ORALLY BEFORE BEDTIME TAKING TIZANIDINE HCL 4 MG TABLET 1 TABLET NEEDED ORALLY NEEDED THREE TIMES A DAY FOR SPASMS MDD3 TAKING TIZANIDINE HCL 4 MG TABLET 1 TABLET NEEDED ORALLY THREE TIMES A DAY FOR SPASMS AND PAIN MDD3 TAKING BUTRANS 7.5 MCG/HR PATCH WEEKLY 1 PATCH TO SKIN TRANSDERMAL CODE D FOR CHRONIC PAIN) ONCE PER WEEK TAKING SOMA 350 MG TABLET 1 TABLET NEEDED ORALLY (CODE D FOR CHRONIC PAIN) BEFORE BEDTIME FOR SPASMS AND PAIN MDD1 TAKING CHANTIX 1 MG TABLET 1 TABLET ORALLY TWICE A DAY NOT-TAKING REMERON 30 MG TABLET 1 TAB ORALLY DAILY NOT-TAKING CLONIDINE HCL 0.2 MG TABLET 1 TABLET ORALLY TWICE A DAY NOT-TAKING CUSTOM DO NOT USE OXYCODONE 10 MG TABLET 1-2 TABS P.O. Q6HR PRN NOT-TAKING OXYCODONE HCL 5 MG CAPSULE 1 CAPSULE NEEDED ORALLY EVERY 4 HOURS NEEDED NOT-TAKING OXYCODONE HCL 10 MG TABLET 1 ORALLY Q4H MDD 6 NOT-TAKING OXYCONTIN 40 MG TABLET EXTENDED RELEASE 12 HOUR 1 TABLET ORALLY TID MDD3 NOT-TAKING OXYCODONE HCL ER 40 MG TABLET ER 12 HOUR ABUSE-DETERRENT 1 TABLET ORALLY Q8H MDD3 NOT-TAKING OXYCODONE HCL ER 40 MG TABLET ER 12 HOUR ABUSE-DETERRENT 1 TABLET ORALLY EVERY 8 HRS MDD=3 CHRONIC PAIN MEDICATION LIST REVIEWED AND RECONCILED WITH THE PATIENT PAST MEDICAL HISTORY [place] [facility] [facility] S/P TBI () JUNE (NON-COMPLIANT WITH BIPAP / CLAUSTROPHOBIA) OD 09/22-- ADMITTED MRSA ABDOMEN 12/24 ALLERGIES SULFA (FOR ALLERGY USE ONLY): ANAPHYLAXIS AND "TURNS INTO A LOBSTER": ALLERGY LYRICA: SUICIDAL IDEATION: SIDE EFFECTS TOPAMAX: PRECIPITATES NEPHROLITHIASIS: CONTRAINDICATION SURGICAL HISTORY PERFORATED L EAR DRUM AGE 13 R HAND GANGLION CYSTECTOMY 02/2001 PRK SURGERY HERBIE EYES 2004 R SHOULDER X 4 REPAIR (LAST 2 AT [facility] BY [address]. PECK) 03/18, 01/15, 08/19, 12/21 VASECTOMY 2012 RIGHT MENISCAL TEAR REPAIR 08/2015 LEFT EAR BONE REPLACEMENT 03/09/2016 HOSPITALIZATION/MAJOR DIAGNOSTIC PROCEDURE BEHAVIORAL HEALTH ADMISSION X 3 (2 AT [facility] MOST RECENT D/C WAS 07/16/14 OR FOR DEVIATED NASAL SEPTUM (5 DAY SUPPLY OF 5MG OXY GIVEN AND TOOK OVER 10 DAYS). JULY 10 REVIEW OF SYSTEMS REVIEWED BY: PROVIDER: DURAN ALVES MD . CONSTITUTIONAL: ANY CHANGE IN YOUR MEDICAL CONDITION? NO . CHILLS NO . FEVER NO . INFECTION: DO YOU HAVE NEW INFECTIONS? NO . DO YOU HAVE HISTORY OF MRSA? NO . MUSCULOSKELETAL: ANY NEW PATTERNS OF PAIN OR NUMBNESS? NO . GASTROENTEROLOGY: ANY NEW CHANGE IN BOWEL CONTROL? NO . GENITOURINARY: ANY NEW CHANGE IN BLADDER CONTROL? NO . IS THERE A CHANCE YOU COULD BE ? NO . HEMATOLOGY/LYMPH: DO YOU TAKE ANY BLOOD THINNERS? (FOR EXAMPLE- COUMADIN, PLAVIX, AGGRENOX, PLATEL, PRADAXA, OR XARELTO) NO . WHEN WAS YOUR LAST DOSE? DATE: TIME: . NEUROLOGY: HAVE YOU FALLEN IN THE PAST 6 MONTHS? NO . ANY NEW EXTREMITY NUMBNESS OR WEAKNESS? NO . CARDIOLOGY: DO YOU HAVE A PACEMAKER OR DEFIBRILLATOR? NO . RESPIRATORY: HAVE YOU BEEN SICK IN THE PAST WEEK? NO . FEVER NO . FLU LIKE SYMPTOMS? NO . COUGH NO . INTEGUMENTARY: DO YOU HAVE ANY RASHES OR OPEN SORES? YES . ALLERGIC/IMMUNO: ARE YOU ALLERGIC TO SHELLFISH OR IV DYE? NO . ANY NEW ALLERGIES? NO . PSYCHIATRIC: DO YOU HAVE THOUGHTS OF HURTING YOURSELF OR SOMEONE ELSE? NO . ARE YOU ABUSED, NEGLECTED, OR IN AN UNSAFE ENVIRONMENT? NO . ENDOCRINOLOGY: ARE YOU DIABETIC? NO . OTHER: DO YOU NEED ANY PRESCRIPTIONS? YES . IF YES, PLEASE LIST: TIZANIDINE, SOMA, BUTRANS . ANY NEW PROBLEMS WITH YOUR MEDICATIONS? NO . WHEN DID YOU LAST EAT? ____ . WHEN DID YOU LAST DRINK? ____ . WHAT DID YOU LAST DRINK? ____ . NAME OF PERSON DRIVING YOU HOME? ____ . DO YOU HAVE ANY OTHER QUESTIONS OR CONCERNS MUSCLE SPASMS ARE WORSE. PAIN IS WORSE . VITAL SIGNS WT 231.4 LBS, HT 68 IN, BMI 35.18 INDEX, BP 144/96 MM HG, HR 97 /MIN, RR 16 /MIN, TEMP 97.7 F, OXYGEN SAT % 99%, NA INITIALS SC 13:13. EXAMINATION : PATIENT IS ALERT O X 3 AND COOPERATIVE. PATIENT HAS TENDERNESS IN THE BILATERAL LUMBAR FACET JOINTS. THERE IS TENDERNESS IN THE CERVICAL PARASPINAL MUSCLE GROUP. MRI OF THE LUMBAR SPINE DONE ON 07/11/14 SHOWS FACET ARTHROPATHY. MRI OF THE CERVICAL SPINE DONE ON 07/11/14 SHOWS MULTILEVEL DEGENERATIVE DISC DISEASE. ASSESSMENTS MYALGIA - M79.1 (PRIMARY) LOW BACK PAIN - M54.5 SPONDYLOSIS WITHOUT MYELOPATHY OR RADICULOPATHY, LUMBAR REGION - M47.816 SPONDYLOSIS WITHOUT MYELOPATHY OR RADICULOPATHY, LUMBOSACRAL REGION - M47.817 TREATMENT MYALGIA REFILL TIZANIDINE HCL TABLET, 4 MG, 1 TABLET NEEDED, ORALLY NEEDED, FOUR TIMES DAILY NEEDED FOR SPSMS AND PAIN MDD4, 30 DAY(S), 120, REFILLS 2 REFILL BUTRANS PATCH WEEKLY, 7.5 MCG/HR, 1 PATCH TO SKIN, TRANSDERMAL CODE D FOR CHRONIC PAIN), ONCE PER WEEK, 30 DAYS, 4, REFILLS 0 REFILL SOMA TABLET, 350 MG, 1 TABLET NEEDED, ORALLY (CODE D FOR CHRONIC PAIN), BEFORE BEDTIME FOR SPASMS AND PAIN MDD1, 30 DAYS, 30, REFILLS 0 NOTES: WE DISCUSSED SEVERAL ISSUES WITH MR. CM'S PAIN MANAGEMENT CASE. AT THIS TIME THE PATIENT WILL CONTINUE WITH THE SAME MEDICATION REGIME BEFORE. PATIENT REPORTS THE MEDICATION KEEPING HIM MOBILE AND FUNCTIONAL AT THIS TIME. PATIENT DENIES ABUSE OF ANY MEDICATION, DENIES USE OF ILLEGAL SUBSTANCE, AND STATES THAT HE IS ONLY USING THE MEDICATION FOR PAIN MANAGEMENT. URINE TOXICOLOGY REPORT DONE ON 09/27/2015 SHOWS CONSISTENT RESULTS WITH THE PATIENTS MEDICATION LIST. AT THIS TIME NOT INTERVENTIONS WILL BE HELD. PATIENT WILL RETURN TO THE CLINIC IN 6 WEEKS TO DISCUSS FURTHER OPTIONS. INSTRUCTIONS WERE GIVEN, QUESTIONS WERE ANSWERED, PATIENT REPORTS UNDERSTANDING AND AGREES WITH THE PLAN. I, ARIA CARDENAS, DOCUMENTED THE ABOVE INFORMATION ACTING A SCRIBE FOR DR. ALVES. I HAVE REVIEWED THE ABOVE DOCUMENT, WRITTEN BY ARIA BARBOZA AND I VERIFY THAT IT IS ACCURATE. PROCEDURE CODES FA211 ESTABILISHED PATIENT [facility] FACILITY CHARGE G8427 DOC MEDS VERIFIED W/PT OR RE G8730 PAIN ASSESS POS TOOL F/U PLAN DOC DISPOSITION & COMMUNICATION FOLLOW UP 6 WEEKS ELECTRONICALLY SIGNED BY DURAN ALVES MD ON 08/23/2016 AT 10:12 PM EDT DISCLAIMER : THIS IS A VISIT SUMMARY EXTRACTED FROM THE [employer] CHART. IT IS NOT A COPY OF THE [employer] PROGRESS NOTE. CHRIST
== END ==
LOC: M PAIN 12:40
PROVIDERS: ATTEND Anesthesiology
DX: M79.1 Myalgia (principal); M54.5 Low back pain; G89.29 Other chronic pain; M47.816 Spondylosis without myelopathy or radiculopathy, lumbar region; M47.817 Spondylosis without myelopathy or radiculopathy, lumbosacral region; Z79.899 Other long term (current) drug therapy; Z88.2 Allergy status to sulfonamides; Z88.8 Allergy status to other drugs, medicaments and biological substances

== ENCOUNTER → 2016-09-23 | Outpatient (CLI) | payer OTHER, MEDICARE ==
--- NOTE | 2016-10-13 00:07 | ECWPNPC ---
PATIENT NAME: SUSANNA CM : 1980 GENDER: MALE VISIT DATE: 09/23/2016 DISCHARGE DATE: 09/23/16 1519 VISIT LOCKED DATE TIME: PHYSICIAN: DURAN ALVES PHYSICIAN PAGER NO: TEXT BB [phone] RESOURCE: DURAN ALVES REASON FOR APPOINTMENT 1. NECK/BACK PAIN HISTORY OF PRESENT ILLNESS HISTORY OF PRESENT ILLNESS: PAIN THE PATIENT DESCRIBES THE PAIN... 36 YEAR OLD MALE PATIENT WITH HISTORY OF CHRONIC LOW BACK AND NECK PAIN. PATIENT DESCRIBES THE PAIN ACHING, BURNING, SHARP, STABBING, THROBBING, SORE, SHOOTING, AND HAVING IT ALL THE TIME WITH A PAIN SCORE OF 6/10. PATIENT IS CURRENTLY USING BUTRANS PATCH, SOMA, AND TIZANIDINE TO AID IN PAIN RELIEF. MR. CM STATES THAT THE MEDICATION AIDS IN PAIN RELIEF BUT HE STILL HAS QUITE A BIT OF PAIN. PATIENT REPORTS THAT SINCE USING THE BUTRANS PATCH HE HAS HAD LESS MIGRAINES. PATIENT STATES THAT ANY TYPE OF ACTIVITY INCREASES THE PAIN IN HIS NECK AND LOWER BACK INCLUDING WALKING, STANDING, AND WALKING UP STAIRS. PATIENT DENIES UNEXPLAINABLE WEIGHT LOSS, FEVER, CHILLS, NEW CHANGES ON HIS URINARY OR BOWEL CONTROL. FALL RISK SCREENING: SCREENING :NO FALLS IN THE PAST YEAR CURRENT MEDICATIONS TAKING NEXCARE TEGADERM 4"X4-3/4" - MISCELLANEOUS DIRECTED TOPICALLY WEEKLY TAKING IMITREX STATDOSE SYSTEM 6 MG/0.5ML SOLUTION AUTO-INJECTOR NEEDED AT ONSET OF A MIGRAINE, MAY REPEAT IN 2 HOURS SUBCUTANEOUS DAILY PRN TAKING REGLAN 5 MG TABLET ORALLY DIRECTED TAKING BOTOX 200 UNIT SOLUTION RECONSTITUTED 31 INJECTIONS Q 90 DAYS TAKING ROPINIROLE HCL 0.5 MG TABLET ORALLY BEFORE BEDTIME TAKING CHANTIX 1 MG TABLET 1 TABLET ORALLY TWICE A DAY TAKING TIZANIDINE HCL 4 MG TABLET 1 TABLET NEEDED ORALLY NEEDED FOUR TIMES DAILY NEEDED FOR SPSMS AND PAIN MDD4 TAKING BUTRANS 7.5 MCG/HR PATCH WEEKLY 1 PATCH TO SKIN TRANSDERMAL CODE D FOR CHRONIC PAIN) ONCE PER WEEK TAKING SOMA 350 MG TABLET 1 TABLET NEEDED ORALLY (CODE D FOR CHRONIC PAIN) BEFORE BEDTIME FOR SPASMS AND PAIN MDD1 TAKING TRAZODONE HCL 50 MG TABLET 1 TABLET AT BEDTIME NEEDED ORALLY ONCE A DAY NOT-TAKING TIZANIDINE HCL 4 MG TABLET 1 TABLET NEEDED ORALLY THREE TIMES A DAY FOR SPASMS AND PAIN MDD3 NOT-TAKING REMERON 30 MG TABLET 1 TAB ORALLY DAILY NOT-TAKING CLONIDINE HCL 0.2 MG TABLET 1 TABLET ORALLY TWICE A DAY NOT-TAKING CUSTOM DO NOT USE OXYCODONE 10 MG TABLET 1-2 TABS P.O. Q6HR PRN NOT-TAKING OXYCODONE HCL 5 MG CAPSULE 1 CAPSULE NEEDED ORALLY EVERY 4 HOURS NEEDED NOT-TAKING OXYCODONE HCL 10 MG TABLET 1 ORALLY Q4H MDD 6 NOT-TAKING OXYCONTIN 40 MG TABLET EXTENDED RELEASE 12 HOUR 1 TABLET ORALLY TID MDD3 NOT-TAKING OXYCODONE HCL ER 40 MG TABLET ER 12 HOUR ABUSE-DETERRENT 1 TABLET ORALLY Q8H MDD3 NOT-TAKING OXYCODONE HCL ER 40 MG TABLET ER 12 HOUR ABUSE-DETERRENT 1 TABLET ORALLY EVERY 8 HRS MDD=3 CHRONIC PAIN MEDICATION LIST REVIEWED AND RECONCILED WITH THE PATIENT PAST MEDICAL HISTORY [place] ([place] [facility]) S/P TBI () UJNE (NON-COMPLIANT WITH BIPAP / CLAUSTROPHOBIA) OD 09/22-- ADMITTED MRSA ABDOMEN 12/24 ALLERGIES SULFA (FOR ALLERGY USE ONLY): ANAPHYLAXIS AND "TURNS INTO A LOBSTER": ALLERGY LYRICA: SUICIDAL IDEATION: SIDE EFFECTS TOPAMAX: PRECIPITATES NEPHROLITHIASIS: CONTRAINDICATION SURGICAL HISTORY PERFORATED L EAR DRUM AGE 13 R HAND GANGLION CYSTECTOMY 02/2001 PRK SURGERY HERBIE EYES 2004 R SHOULDER X 4 REPAIR (LAST 2 AT [facility] BY DR. PECK) 03/18, 01/15, 08/19, 12/21 VASECTOMY 2012 RIGHT MENISCAL TEAR REPAIR 08/2015 LEFT EAR BONE REPLACEMENT 03/09/2016 HOSPITALIZATION/MAJOR DIAGNOSTIC PROCEDURE BEHAVIORAL HEALTH ADMISSION X 3 (2 AT [facility] MOST RECENT D/C WAS 07/16/14 OR FOR DEVIATED NASAL SEPTUM (5 DAY SUPPLY OF 5MG OXY GIVEN AND TOOK OVER 10 DAYS). JULY 10 REVIEW OF SYSTEMS REVIEWED BY: PROVIDER: DURAN ALVES MD . CONSTITUTIONAL: ANY CHANGE IN YOUR MEDICAL CONDITION? NO . CHILLS NO . FEVER NO . INFECTION: DO YOU HAVE NEW INFECTIONS? NO . DO YOU HAVE HISTORY OF MRSA? NO . MUSCULOSKELETAL: ANY NEW PATTERNS OF PAIN OR NUMBNESS? YES, BACK SPASMS ARE WORSE . GASTROENTEROLOGY: ANY NEW CHANGE IN BOWEL CONTROL? NO . GENITOURINARY: ANY NEW CHANGE IN BLADDER CONTROL? NO . IS THERE A CHANCE YOU COULD BE ? NO . HEMATOLOGY/LYMPH: DO YOU TAKE ANY BLOOD THINNERS? (FOR EXAMPLE- COUMADIN, PLAVIX, AGGRENOX, PLATEL, PRADAXA, OR XARELTO) NO . WHEN WAS YOUR LAST DOSE? DATE: TIME: . NEUROLOGY: HAVE YOU FALLEN IN THE PAST 6 MONTHS? NO . ANY NEW EXTREMITY NUMBNESS OR WEAKNESS? NO . CARDIOLOGY: DO YOU HAVE A PACEMAKER OR DEFIBRILLATOR? NO . RESPIRATORY: HAVE YOU BEEN SICK IN THE PAST WEEK? NO . FEVER NO . FLU LIKE SYMPTOMS? NO . COUGH NO . INTEGUMENTARY: DO YOU HAVE ANY RASHES OR OPEN SORES? NO . ALLERGIC/IMMUNO: ARE YOU ALLERGIC TO SHELLFISH OR IV DYE? NO . ANY NEW ALLERGIES? NO . PSYCHIATRIC: DO YOU HAVE THOUGHTS OF HURTING YOURSELF OR SOMEONE ELSE? NO . ARE YOU ABUSED, NEGLECTED, OR IN AN UNSAFE ENVIRONMENT? NO . ENDOCRINOLOGY: ARE YOU DIABETIC? NO . OTHER: DO YOU NEED ANY PRESCRIPTIONS? YES, BUTRANS PATCH, SOMA, TIZANIDINE . IF YES, PLEASE LIST: ____ . ANY NEW PROBLEMS WITH YOUR MEDICATIONS? NO . WHEN DID YOU LAST EAT? ____ . WHEN DID YOU LAST DRINK? ____ . WHAT DID YOU LAST DRINK? ____ . NAME OF PERSON DRIVING YOU HOME? ____ . DO YOU HAVE ANY OTHER QUESTIONS OR CONCERNS NO . VITAL SIGNS WT 225 LBS, HT 68 IN, BMI 34.21 INDEX, BP 129/84 MM HG, HR 86 /MIN, RR 16 /MIN, TEMP 98.4 F, OXYGEN SAT % 95%, NA INITIALS SC 13:47, REVIEWED BY: EM. EXAMINATION : PATIENT IS ALERT O X 3 AND COOPERATIVE. PATIENT HAS TENDERNESS IN THE BILATERAL LUMBAR FACET JOINTS. THERE IS TENDERNESS IN THE CERVICAL PARASPINAL MUSCLE GROUP. MRI OF THE LUMBAR SPINE DONE ON 07/11/14 SHOWS FACET ARTHROPATHY. MRI OF THE CERVICAL SPINE DONE ON 07/11/14 SHOWS MULTILEVEL DEGENERATIVE DISC DISEASE. ASSESSMENTS MYALGIA - M79.1 (PRIMARY) LOW BACK PAIN - M54.5 SPONDYLOSIS WITHOUT MYELOPATHY OR RADICULOPATHY, LUMBAR REGION - M47.816 SPONDYLOSIS WITHOUT MYELOPATHY OR RADICULOPATHY, LUMBOSACRAL REGION - M47.817 TREATMENT MYALGIA REFILL BUTRANS PATCH WEEKLY, 7.5 MCG/HR, 1 PATCH TO SKIN, TRANSDERMAL CODE D FOR CHRONIC PAIN), ONCE PER WEEK, 30 DAYS, 4, REFILLS 0 REFILL TIZANIDINE HCL TABLET, 4 MG, 1 TABLET NEEDED, ORALLY NEEDED, FOUR TIMES DAILY NEEDED FOR SPSMS AND PAIN MDD4, 30 DAY(S), 120, REFILLS 2 REFILL SOMA TABLET, 350 MG, 1 TABLET NEEDED, ORALLY (CODE D FOR CHRONIC PAIN), BEFORE BEDTIME FOR SPASMS AND PAIN MDD1, 30 DAYS, 30, REFILLS 0 NOTES: WE DISCUSSED SEVERAL ISSUES WITH MR. CM'S PAIN MANAGEMENT CASE. AT THIS TIME THE PATIENT WILL CONTINUE WITH THE SAME MEDICATION REGIME BEFORE. PATIENT REPORTS THE MEDICATION KEEPING HIM MOBILE AND FUNCTIONAL AT THIS TIME. PATIENT DENIES ABUSE OF ANY MEDICATION, DENIES USE OF ILLEGAL SUBSTANCE, AND STATES THAT HE IS ONLY USING THE MEDICATION FOR PAIN MANAGEMENT. URINE TOXICOLOGY REPORT DONE ON 09/27/2015 SHOWS CONSISTENT RESULTS WITH THE PATIENTS MEDICATION LIST. PATIENT WILL PERFORM A URINE TOXICOLOGY REPORT TODAY. AFTER VIEWING THE PATIENT'S MRI AND WHERE THE PATIENT STATES HIS WORST PAIN IS I WOULD LIKE TO MOVE FORWARD WITH A LUMBAR FACET BLOCK. WE DISCUSSED THE RISKS, BENENFITS, AND ALTNERATIVES OF THE INJECTION AND THE PATIENT WOULD LIKE TO PROCEED AT THIS TIME. PATIENT WILL RETURN TO THE CLINIC IN 2 MONTHS TO DISCUSS FURTHER OPTIONS. INSTRUCTIONS WERE GIVEN, QUESTIONS WERE ANSWERED, PATIENT REPORTS UNDERSTANDING AND AGREES WITH THE PLAN. I, ARIA CARDENAS, DOCUMENTED THE ABOVE INFORMATION ACTING A SCRIBE FOR DR. ALVES. I HAVE REVIEWED THE ABOVE DOCUMENT, WRITTEN BY ARIA BARBOZA AND I VERIFY THAT IT IS ACCURATE. PREVENTIVE MEDICINE PREPROCEDURE DIRECTIONS REVIEWED AND PT EXPRESSED UNDERSTANDING. PROCEDURE CODES FA211 ESTABILISHED PATIENT [facility] FACILITY CHARGE G8427 DOC MEDS VERIFIED W/PT OR RE G8761 PAIN ASSESS POS TOOL F/U PLAN DOC DISPOSITION & COMMUNICATION FOLLOW UP 3 WEEKS ELECTRONICALLY SIGNED BY DURAN ALVES MD ON 10/12/2016 AT 08:43 PM EDT DISCLAIMER : THIS IS A VISIT SUMMARY EXTRACTED FROM THE [employer] CHART. IT IS NOT A COPY OF THE [employer] PROGRESS NOTE. LEOBARDOD
== END ==
LOC: M PAIN 13:20
PROVIDERS: ATTEND Anesthesiology
DX: M79.1 Myalgia (principal); M54.5 Low back pain; M47.816 Spondylosis without myelopathy or radiculopathy, lumbar region; M47.817 Spondylosis without myelopathy or radiculopathy, lumbosacral region; M54.2 Cervicalgia; G89.29 Other chronic pain; G47.30 Sleep apnea, unspecified; F43.10 Post-traumatic stress disorder, unspecified; Z79.899 Other long term (current) drug therapy; Z88.3 Allergy status to other anti-infective agents; Z87.820 Personal history of traumatic brain injury; Z91.5 Personal history of self-harm; Z86.14 Personal history of Methicillin resistant Staphylococcus aureus infection

== ENCOUNTER → 2016-10-22 | Outpatient (CLI) | payer OTHER, MEDICARE ==
[~2016-10-22] MED LIST changes: +BUPIVACAINE HCL 0.25% 30 ML VIAL As Ordered ONE; +ISOVUE-M 300 61% 15ML VIAL (Q9967) As Ordered ONE; +LIDOCAINE 1% SDV INJ 30 ML VIAL As Ordered ONE; +TRIAMCINOLONE ACETONIDE SUSP 40 MG/ML VIAL (J3301) As Ordered ONE; +diazePAM 5 MG TAB As Ordered ONE; +oxyCODONE 5MG TAB As Ordered ONE
--- NOTE | 2016-10-22 11:09 | REP ---
FLUOROSCOPIC GUIDANCE FOR LUMBAR FACET BLOCK: 10/22/2016 CLINICAL HISTORY: Low back pain. FINDINGS: Four images from C-arm fluoroscopy provided to Dr. Arevalo of the pain clinic. Oblique left and right images show needles overlying the facets at L4-5 and L5-S1 on each side with a second image on each side demonstrating contrast adjacent to those needles. Fluoroscopy time 28 seconds. Signed by Angel Hayes MD 10/22/2016 02:58 P
--- NOTE | 2016-10-23 | ECWPNPC ---
PATIENT NAME: SUSANNA CM : 1980 GENDER: MALE VISIT DATE: 10/22/2016 DISCHARGE DATE: 10/22/16 1050 VISIT LOCKED DATE TIME: PHYSICIAN: DURAN ALVES PHYSICIAN PAGER NO: TEXT TO [phone] RESOURCE: DURAN ALVES REASON FOR APPOINTMENT 1. LFBT HISTORY OF PRESENT ILLNESS HISTORY OF PRESENT ILLNESS: PAIN THE PATIENT DESCRIBES THE PAIN... FALL RISK SCREENING: SCREENING :NO FALLS IN THE PAST YEAR CURRENT MEDICATIONS TAKING NEXCARE TEGADERM 4"X4-3/4" - MISCELLANEOUS DIRECTED TOPICALLY WEEKLY TAKING IMITREX STATDOSE SYSTEM 6 MG/0.5ML SOLUTION AUTO-INJECTOR NEEDED AT ONSET OF A MIGRAINE, MAY REPEAT IN 2 HOURS SUBCUTANEOUS DAILY PRN, NOTES: COUPLE DAYS AGO TAKING REGLAN 5 MG TABLET ORALLY DIRECTED, NOTES: NOT FOR A WHILE TAKING BOTOX 200 UNIT SOLUTION RECONSTITUTED 31 INJECTIONS Q 90 DAYS, NOTES: AUGUST LAST INJECTION TAKING ROPINIROLE HCL 0.5 MG TABLET ORALLY BEFORE BEDTIME, NOTES: NOT LATELY TAKING CHANTIX 1 MG TABLET 1 TABLET ORALLY TWICE A DAY, NOTES: NOT TAKING TAKING TRAZODONE HCL 50 MG TABLET 1 TABLET AT BEDTIME NEEDED ORALLY ONCE A DAY, NOTES: LAST NIGHT 2099 TAKING BUTRANS 7.5 MCG/HR PATCH WEEKLY 1 PATCH TO SKIN TRANSDERMAL CODE D FOR CHRONIC PAIN) ONCE PER WEEK, NOTES: NOT ON NOW TAKING TIZANIDINE HCL 4 MG TABLET 1 TABLET NEEDED ORALLY NEEDED FOUR TIMES DAILY NEEDED FOR SPSMS AND PAIN MDD4, NOTES: 10-21-162099 TAKING SOMA 350 MG TABLET 1 TABLET NEEDED ORALLY (CODE D FOR CHRONIC PAIN) BEFORE BEDTIME FOR SPASMS AND PAIN MDD1, NOTES: 10-21-162099 NOT-TAKING TIZANIDINE HCL 4 MG TABLET 1 TABLET NEEDED ORALLY THREE TIMES A DAY FOR SPASMS AND PAIN MDD3 NOT-TAKING REMERON 30 MG TABLET 1 TAB ORALLY DAILY NOT-TAKING CLONIDINE HCL 0.2 MG TABLET 1 TABLET ORALLY TWICE A DAY NOT-TAKING CUSTOM DO NOT USE OXYCODONE 10 MG TABLET 1-2 TABS P.O. Q6HR PRN NOT-TAKING OXYCODONE HCL 5 MG CAPSULE 1 CAPSULE NEEDED ORALLY EVERY 4 HOURS NEEDED NOT-TAKING OXYCODONE HCL 10 MG TABLET 1 ORALLY Q4H MDD 6 NOT-TAKING OXYCONTIN 40 MG TABLET EXTENDED RELEASE 12 HOUR 1 TABLET ORALLY TID MDD3 NOT-TAKING OXYCODONE HCL ER 40 MG TABLET ER 12 HOUR ABUSE-DETERRENT 1 TABLET ORALLY Q8H MDD3 NOT-TAKING OXYCODONE HCL ER 40 MG TABLET ER 12 HOUR ABUSE-DETERRENT 1 TABLET ORALLY EVERY 8 HRS MDD=3 CHRONIC PAIN MEDICATION LIST REVIEWED AND RECONCILED WITH THE PATIENT PAST MEDICAL HISTORY [place] [facility] [facility] S/P TBI () JUNE (NON-COMPLIANT WITH BIPAP 2/2 CLAUSTROPHOBIA) OD 09/22-- ADMITTED MRSA ABDOMEN 12/24 ALLERGIES SULFA (FOR ALLERGY USE ONLY): ANAPHYLAXIS AND "TURNS INTO A LOBSTER": ALLERGY LYRICA: SUICIDAL IDEATION: SIDE EFFECTS TOPAMAX: PRECIPITATES NEPHROLITHIASIS: CONTRAINDICATION REVIEW OF SYSTEMS REVIEWED BY: PROVIDER: . CONSTITUTIONAL: ANY CHANGE IN YOUR MEDICAL CONDITION? NO . CHILLS NO . FEVER NO . INFECTION: DO YOU HAVE NEW INFECTIONS? NO . DO YOU HAVE HISTORY OF MRSA? NO . MUSCULOSKELETAL: ANY NEW PATTERNS OF PAIN OR NUMBNESS? NO . GASTROENTEROLOGY: ANY NEW CHANGE IN BOWEL CONTROL? NO . GENITOURINARY: ANY NEW CHANGE IN BLADDER CONTROL? NO . IS THERE A CHANCE YOU COULD BE ? NO . HEMATOLOGY/LYMPH: DO YOU TAKE ANY BLOOD THINNERS? (FOR EXAMPLE- COUMADIN, PLAVIX, AGGRENOX, PLATEL, PRADAXA, OR XARELTO) NO . WHEN WAS YOUR LAST DOSE? DATE: TIME: . NEUROLOGY: HAVE YOU FALLEN IN THE PAST 6 MONTHS? NO . ANY NEW EXTREMITY NUMBNESS OR WEAKNESS? NO . CARDIOLOGY: DO YOU HAVE A PACEMAKER OR DEFIBRILLATOR? NO . RESPIRATORY: HAVE YOU BEEN SICK IN THE PAST WEEK? NO . FEVER NO . FLU LIKE SYMPTOMS? NO . COUGH NO . INTEGUMENTARY: DO YOU HAVE ANY RASHES OR OPEN SORES? NO . ALLERGIC/IMMUNO: ARE YOU ALLERGIC TO SHELLFISH OR IV DYE? NO . ANY NEW ALLERGIES? NO . PSYCHIATRIC: DO YOU HAVE THOUGHTS OF HURTING YOURSELF OR SOMEONE ELSE? NO . ARE YOU ABUSED, NEGLECTED, OR IN AN UNSAFE ENVIRONMENT? NO . ENDOCRINOLOGY: ARE YOU DIABETIC? NO . OTHER: DO YOU NEED ANY PRESCRIPTIONS? NO . IF YES, PLEASE LIST: ____ . ANY NEW PROBLEMS WITH YOUR MEDICATIONS? NO . WHEN DID YOU LAST EAT? ____2100 LAST NIGHT . WHEN DID YOU LAST DRINK? ____0530 THIS MORNIG . WHAT DID YOU LAST DRINK? ____WATER . NAME OF PERSON DRIVING YOU HOME? ____FRANCISCO J CM . DO YOU HAVE ANY OTHER QUESTIONS OR CONCERNS NO . VITAL SIGNS WT 232 LBS, HT 68 IN, BMI 35.27 INDEX, BP 105/55 MM HG, HR 70 /MIN, RR 18 /MIN, TEMP 98.9 F, OXYGEN SAT % 94, REVIEWED BY: KG. ASSESSMENTS SPONDYLOSIS OF LUMBAR REGION WITHOUT MYELOPATHY OR RADICULOPATHY - M47.816 (PRIMARY) SPONDYLOSIS OF LUMBOSACRAL REGION WITHOUT MYELOPATHY OR RADICULOPATHY - M47.817 PROCEDURES PN LUMBAR FACET BLOCK THERAPEUTIC PRE PROCEDURE DIAGNOSIS LUMBAR SPONDYLOSIS, LUMBOSACRAL SPONDYLOSIS POST PROCEDURE DIAGNOSIS LUMBAR SPONDYLOSIS, LUMBOSACRAL SPONDYLOSIS PROCEDURE BILATERAL L4-L5 AND BILATERAL L5-S1 LUMBAR FACET THERAPEUTIC BLOCK SURGEON DR. DURAN ALVES HOME CARE COORDINATOR NONE ANESTHESIA LOCAL PRE PROCEDURE NOTE THE PATIENT HAS A HISTORY OF CHRONIC LOW BACK PAIN. I EVALUATE THE PATIENT AND REVIEWED THE CHART. I WENT OVER THE RISKS, ALTERNATIVES, AND BENEFITS ASSOCIATED WITH THIS PROCEDURE. THE PATIENT WOULD LIKE TO PROCEED AND GIVE CONSENT TO PERFORMED THE PROCEDURE. THE PATIENT DENIES UNEXPLAINABLE WEIGHT LOSS, FEVER, CHILLS, OR NEW CHANGES IN URINARY OR BOWEL CONTROL DESCRIPTION OF PROCEDURE THE PATIENT WAS BROUGHT TO THE PROCEDURE ROOM AND PLACED IN THE PRONE POSITION. THE LUMBOSACRAL AREA WAS CLEANED WITH CHLORAPREP SOLUTION AND DRAPED ASEPTICALLY. THE PROCEDURE WAS DONE UNDER STERILE CONDITIONS. I CHECKED LATERALITY AND THE LEVEL WHERE THE PROCEDURE WAS GOING TO BE PERFORMED WITH THE PATIENT AND THE SUPPORTING STAFF AT THE MOMENT OF THE TIME OUT IN THE PROCEDURE ROOM. UNDER FLUOROSCOPIC GUIDANCE, THE TARGET POINT WAS SELECTED AT THE RIGHT AND LEFT L4-L5 AND RIGHT AND LEFT L5-S1 FACET JOINT. TARGET POINT WAS SELECTED AFTER LATERAL ROTATION AND TILT OF THE MAGNIFIER OF THE C-ARM. LIDOCAINE 0.5% WAS USED TO NUMB THE SKIN AND THE SUBCUTANEOUS TISSUE BELOW IT. SPINAL NEEDLES, 22-GAUGE, WERE ADVANCED UNDER FLUOROSCOPIC GUIDANCE AND FOLLOWING PATIENT FEEDBACK UNTIL THE TARGETS WERE TOUCHED. THE POSITION OF THE NEEDLES WAS VERIFIED WITH AP AND LATERAL VIEWS. AFTER PROPER POSITION OF THE NEEDLES WAS ACHIEVED, ISOVUE-M DYE 30% 0.1 ML WAS INJECTED SHOWING ADEQUATE SPREAD OF THE DYE. THEN A SOLUTION OF 1.9 ML OF BUPIVACAINE 0.125% OF KENALOG 10 MG WAS INJECTED AT EACH SITE. THERE WAS NO EVIDENCE OF BLOOD, PARESTHESIA OR CEREBROSPINAL FLUID DURING THE PROCEDURE. THE PATIENT WAS SENT TO THE RECOVERY ROOM. THE PATIENT WAS MOVING THE EXTREMITIES AND DOING WELL. THERE WAS NO COMPLICATION DURING THE PROCEDURE. FLUOROSCOPY TIME WAS 28 SECONDS POST PROCEDURE NOTE THE PATIENT WILL BE SEEN IN A FOLLOW UP IN THE NEXT FEW WEEKS. INSTRUCTIONS WERE GIVEN, QUESTIONS WERE ANSWERED, AND THE PATIENT EXPRESSED UNDERSTANDING AND AGREES WITH THE PLAN. I, ARIA CARDENAS, DOCUMENTED THE ABOVE INFORMATION ACTING A SCRIBE FOR DR. ALVES. I HAVE REVIEWED THE ABOVE DOCUMENT, WRITTEN BY ARIA CHAPPELLIBCate AND I VERIFY THAT IT IS [facility] DIAGNOST[facility]AG[facility] FACET BLOCK (PAIN)[id number] PROCEDURE CODES 04460 INJ PARAVERT F JNT L/S 1 LEV 58587 INJ PARAVERT F JNT L/S 2 LEV 6045F RADXPS IN END [id number] PXD DISPOSITION & COMMUNICATION FOLLOW UP 3 WEEKS ELECTRONICALLY SIGNED BY DURAN ALVES MD ON 10/22/2016 AT 12:26 PM EDT DISCLAIMER : THIS IS A VISIT SUMMARY EXTRACTED FROM THE [employer] CHART. IT IS NOT A COPY OF THE [employer] PROGRESS NOTE. MTDD
== END ==
LOC: M PAIN 08:45
PROVIDERS: ATTEND Anesthesiology
DX: G89.29 Other chronic pain (principal); M47.816 Spondylosis without myelopathy or radiculopathy, lumbar region; M47.817 Spondylosis without myelopathy or radiculopathy, lumbosacral region; M54.5 Low back pain; Z79.899 Other long term (current) drug therapy; Z88.2 Allergy status to sulfonamides; Z88.8 Allergy status to other drugs, medicaments and biological substances
CPT/HCPCS: 64493; 64494; J3301; Q9967

== ENCOUNTER → 2016-11-13 | Outpatient (CLI) | payer OTHER, MEDICARE ==
[~2016-11-13] MED LIST changes: -BUPIVACAINE HCL 0.25% 30 ML VIAL As Ordered ONE; -ISOVUE-M 300 61% 15ML VIAL (Q9967) As Ordered ONE; -LIDOCAINE 1% SDV INJ 30 ML VIAL As Ordered ONE; -TRIAMCINOLONE ACETONIDE SUSP 40 MG/ML VIAL (J3301) As Ordered ONE; -diazePAM 5 MG TAB As Ordered ONE; -oxyCODONE 5MG TAB As Ordered ONE
--- NOTE | 2016-11-17 01:06 | ECWPNPC ---
PATIENT NAME: SUSANNA CM : 1980 GENDER: MALE VISIT DATE: 11/13/2016 DISCHARGE DATE: 11/13/16 1059 VISIT LOCKED DATE TIME: PHYSICIAN: DURAN ALVES PHYSICIAN PAGER NO: DZOZ IO [phone] RESOURCE: DURAN ALVES REASON FOR APPOINTMENT 1. NECK PAIN AND LOW BACK PAIN HISTORY OF PRESENT ILLNESS HISTORY OF PRESENT ILLNESS: PAIN THE PATIENT DESCRIBES THE PAIN... 36 YEAR OLD MALE PATIENT WITH HISTORY OF CHRONIC LOW BACK PAIN AND CHRONIC NECK PAIN. PATIENT DESCRIBES THE PAIN ACHING, BURNING, SHARP, STABBING, TENDER, THROBBING, SORE, SHOOTING, AND HAVING IT ALL THE TIME WITH A PAIN SCORE OF 4/10. PATIENT RECEIVED A THERAPEUTIC LUMBAR FACET BLOCK ON 10/22/16 AND REPORTS DAYS OF PAIN RELIEF. PATIENT IS CURRENTLY USING BUTRANS PATCH, SOMA, AND TIZANIDINE TO AID IN PAIN RELIEF. MR. CM STATES THAT THE MEDICATION AIDS IN PAIN RELIEF BUT HE STILL HAS QUITE A BIT OF PAIN. PATIENT REPORTS THAT SINCE USING THE BUTRANS PATCH HE HAS HAD LESS MIGRAINES. PATIENT STATES THAT ANY TYPE OF ACTIVITY INCREASES THE PAIN IN HIS NECK AND LOWER BACK INCLUDING WALKING, STANDING, AND WALKING UP STAIRS. MR. CM IS CURIOUS ABOUT MOVING FORWARD WITH RADIOFREQUENCY. PATIENT DENIES UNEXPLAINABLE WEIGHT LOSS, FEVER, CHILLS, NEW CHANGES ON HIS URINARY OR BOWEL CONTROL. FALL RISK SCREENING: SCREENING :NO FALLS IN THE PAST YEAR CURRENT MEDICATIONS TAKING NEXCARE TEGADERM 4"X4-3/4" - MISCELLANEOUS DIRECTED TOPICALLY WEEKLY TAKING IMITREX STATDOSE SYSTEM 6 MG/0.5ML SOLUTION AUTO-INJECTOR NEEDED AT ONSET OF A MIGRAINE, MAY REPEAT IN 2 HOURS SUBCUTANEOUS DAILY PRN TAKING REGLAN 5 MG TABLET ORALLY DIRECTED TAKING BOTOX 200 UNIT SOLUTION RECONSTITUTED 31 INJECTIONS Q 90 DAYS TAKING ROPINIROLE HCL 0.5 MG TABLET ORALLY BEFORE BEDTIME TAKING CHANTIX 1 MG TABLET 1 TABLET ORALLY TWICE A DAY TAKING TRAZODONE HCL 50 MG TABLET 1 TABLET AT BEDTIME NEEDED ORALLY ONCE A DAY TAKING BUTRANS 7.5 MCG/HR PATCH WEEKLY 1 PATCH TO SKIN TRANSDERMAL CODE D FOR CHRONIC PAIN) ONCE PER WEEK TAKING TIZANIDINE HCL 4 MG TABLET 1 TABLET NEEDED ORALLY NEEDED FOUR TIMES DAILY NEEDED FOR SPSMS AND PAIN MDD4 TAKING SOMA 350 MG TABLET 1 TABLET NEEDED ORALLY (CODE D FOR CHRONIC PAIN) BEFORE BEDTIME FOR SPASMS AND PAIN MDD1 DISCONTINUED TIZANIDINE HCL 4 MG TABLET 1 TABLET NEEDED ORALLY THREE TIMES A DAY FOR SPASMS AND PAIN MDD3 DISCONTINUED REMERON 30 MG TABLET 1 TAB ORALLY DAILY DISCONTINUED CLONIDINE HCL 0.2 MG TABLET 1 TABLET ORALLY TWICE A DAY DISCONTINUED CUSTOM DO NOT USE OXYCODONE 10 MG TABLET 1-2 TABS P.O. Q6HR PRN DISCONTINUED OXYCODONE HCL 5 MG CAPSULE 1 CAPSULE NEEDED ORALLY EVERY 4 HOURS NEEDED DISCONTINUED OXYCODONE HCL 10 MG TABLET 1 ORALLY Q4H MDD 6 DISCONTINUED OXYCONTIN 40 MG TABLET EXTENDED RELEASE 12 HOUR 1 TABLET ORALLY TID MDD3 DISCONTINUED OXYCODONE HCL ER 40 MG TABLET ER 12 HOUR ABUSE-DETERRENT 1 TABLET ORALLY Q8H MDD3 DISCONTINUED OXYCODONE HCL ER 40 MG TABLET ER 12 HOUR ABUSE-DETERRENT 1 TABLET ORALLY EVERY 8 HRS MDD=3 CHRONIC PAIN MEDICATION LIST REVIEWED AND RECONCILED WITH THE PATIENT PAST MEDICAL HISTORY [facility] S/P TBI () JUNE (NON-COMPLIANT WITH BIPAP 2/2 CLAUSTROPHOBIA) OD 09/22-- ADMITTED MRSA ABDOMEN 12/24 ALLERGIES SULFA (FOR ALLERGY USE ONLY): ANAPHYLAXIS AND "TURNS INTO A LOBSTER": ALLERGY LYRICA: SUICIDAL IDEATION: SIDE EFFECTS TOPAMAX: PRECIPITATES NEPHROLITHIASIS: CONTRAINDICATION SOCIAL HISTORY GENERAL: TOBACCO USE ARE YOU A:CURRENT SMOKER ARE YOU INTERESTED IN QUITTING?THINKING ABOUT QUITTING HAS NEW SCRIPT FOR CHANTIX PREVIOUS QUIT ATTEMPTS?YES, WITHIN THE LAST 6 MONTHS. COUNSELED THE PATIENT ON SMOKING CESSATION, EDUCATION [id number]/06/2017 HOW MANY CIGARETTES A DAY DO YOU SMOKE?11-20 HOW SOON AFTER YOU WAKE UP DO YOU SMOKE YOUR FIRST CIGARETTE?6-30 MIN HOW OFTEN DO YOU SMOKE CIGARETTES?EVERY DAY PATIENT COUNSELED ON THE DANGERS OF TOBACCO USE AND URGED TO QUIT:11/13/2016 ALCOHOL SCREENING POINTS0 INTERPRETATIONNEGATIVE CAFFEINE CAFFEINE USE?YES HOW OFTEN AND HOW MUCH? SEVERAL PER DAY DIET: REGULAR. EXERCISE: NO REGULAR EXERCISE. MARITAL STATUS: .. SIKH [id number] NONE LANGUAGE LANGUAGES SPOKEN:ZAMBIAN LEARNING BARRIERS / SPECIAL NEEDS BARRIERS TO LEARNING?NO HEARING IMPAIRED?YES HEARING LOSS VISION IMPAIRED?NO COGNITIVELY IMPAIRED?NO READINESS TO LEARN?YES LEARNING PREFERENCES?NO LEARNING CAPABILITIES PRESENT?YES EMOTIONAL BARRIERS?NO SPECIAL DEVICES?YES :BRACE BRACE LEFT KNEE NEEDED PAIN CLINIC PFS, CLERGY, PUBLIC HEALTH REFERRALS PFS REFERRAL NEEDED?NO CLERGY REFERRAL NEEDED?NO PUBLIC HEALTH REFERRAL NEEDED?NO WAS THE PROVIDER NOTIFIED OF ANY PERTINENT INFO?YES HAS THE PATIENT BEEN EDUCATED REGARDING HIS/HER PLAN OF CARE?YES HAS THE PATIENT BEEN EDUCATED REGARDING PAIN, THE RISK FOR PAIN, THE IMPORTANCE OF EFFECTIVE PAIN MANAGEMENT, AND THE PAIN ASSESSMENT PROCESS?YES REVIEWED BY: MARICEL. PATIENT: ____. ADVANCE DIRECTIVES HEALTH CARE PROXY?YES NAME OF HCP ELIZABETH MERIDA CONTACT # FOR HCP [phone] DO YOU HAVE A COPY WITH YOU?NO DO YOU HAVE A DNR?NO WOULD YOU LIKE MORE INFORMATION?NO LIVING WILL?NO WOULD YOU LIKE MORE INFORMATION?NO POWER OF WELDER FITTER?NO WOULD YOU LIKE MORE INFORMATION?YES DOMESTIC VIOLENCE DO YOU FEEL SAFE IN YOUR ENVIRONMENT?YES REVIEW OF SYSTEMS REVIEWED BY: PROVIDER: DURAN ALVES MD . CONSTITUTIONAL: ANY CHANGE IN YOUR MEDICAL CONDITION? NO . CHILLS NO . FEVER NO . INFECTION: DO YOU HAVE NEW INFECTIONS? NO . DO YOU HAVE HISTORY OF MRSA? NO . MUSCULOSKELETAL: ANY NEW PATTERNS OF PAIN OR NUMBNESS? YES, AFTER INJECTION HE HAS HAD SHOOTING PAIN DOWN RIGHT BUTTOCKS AND LEG . GASTROENTEROLOGY: ANY NEW CHANGE IN BOWEL CONTROL? NO . GENITOURINARY: ANY NEW CHANGE IN BLADDER CONTROL? NO . IS THERE A CHANCE YOU COULD BE ? NO . HEMATOLOGY/LYMPH: DO YOU TAKE ANY BLOOD THINNERS? (FOR EXAMPLE- COUMADIN, PLAVIX, AGGRENOX, PLATEL, PRADAXA, OR XARELTO) NO . WHEN WAS YOUR LAST DOSE? DATE: TIME: . NEUROLOGY: HAVE YOU FALLEN IN THE PAST 6 MONTHS? NO . ANY NEW EXTREMITY NUMBNESS OR WEAKNESS? NO . CARDIOLOGY: DO YOU HAVE A PACEMAKER OR DEFIBRILLATOR? NO . RESPIRATORY: HAVE YOU BEEN SICK IN THE PAST WEEK? NO . FEVER NO . FLU LIKE SYMPTOMS? NO . COUGH NO . INTEGUMENTARY: DO YOU HAVE ANY RASHES OR OPEN SORES? NO . ALLERGIC/IMMUNO: ARE YOU ALLERGIC TO SHELLFISH OR IV DYE? NO . ANY NEW ALLERGIES? NO . PSYCHIATRIC: DO YOU HAVE THOUGHTS OF HURTING YOURSELF OR SOMEONE ELSE? NO . ARE YOU ABUSED, NEGLECTED, OR IN AN UNSAFE ENVIRONMENT? NO . ENDOCRINOLOGY: ARE YOU DIABETIC? NO . OTHER: DO YOU NEED ANY PRESCRIPTIONS? YES . IF YES, PLEASE LIST: TIZANIDINE, SOMA, BUTRANS . ANY NEW PROBLEMS WITH YOUR MEDICATIONS? NO . WHEN DID YOU LAST EAT? ____ . WHEN DID YOU LAST DRINK? ____ . WHAT DID YOU LAST DRINK? ____ . NAME OF PERSON DRIVING YOU HOME? ____ . DO YOU HAVE ANY OTHER QUESTIONS OR CONCERNS YES, WOULD LIKE TO DISCUSS RF . VITAL SIGNS WT 229.4 LBS, HT 68 IN, BMI 34.88 INDEX, BP 130/98 MM HG, HR 80 /MIN, RR 16 /MIN, TEMP 98.6 F, OXYGEN SAT % 95%, REVIEWED BY: SERA. EXAMINATION : PATIENT IS ALERT O X 3 AND COOPERATIVE. PATIENT HAS TENDERNESS IN THE BILATERAL LUMBAR FACET JOINTS. THERE IS TENDERNESS IN THE CERVICAL PARASPINAL MUSCLE GROUP. MRI OF THE LUMBAR SPINE DONE ON 07/11/14 SHOWS FACET ARTHROPATHY. MRI OF THE CERVICAL SPINE DONE ON 07/11/14 SHOWS MULTILEVEL DEGENERATIVE DISC DISEASE. ASSESSMENTS MYALGIA - M79.1 (PRIMARY) SPONDYLOSIS OF LUMBAR REGION WITHOUT MYELOPATHY OR RADICULOPATHY - M47.816 SPONDYLOSIS OF LUMBOSACRAL REGION WITHOUT MYELOPATHY OR RADICULOPATHY - M47.817 TREATMENT MYALGIA REFILL TIZANIDINE HCL CAPSULE, 6 MG, 1 TABLET NEEDED, ORALLY, FOUR TIMES DAILY NEEDED FOR SPSMS AND PAIN MDD4, 30 DAY(S), 120, REFILLS 1 REFILL SOMA TABLET, 350 MG, 1 TABLET NEEDED, ORALLY (CODE D FOR CHRONIC PAIN), BEFORE BEDTIME FOR SPASMS AND PAIN MDD1, 30 DAYS, 30, REFILLS 0 REFILL BUTRANS PATCH WEEKLY, 7.5 MCG/HR, 1 PATCH TO SKIN, TRANSDERMAL CODE D FOR CHRONIC PAIN), ONCE PER WEEK, 30 DAYS, 4, REFILLS 0 START GABAPENTIN CAPSULE, 300 MG, 1 CAPSULE, ORALLY FOR PAIN, BEFORE BEDTIME, 30 DAY(S), 30, REFILLS 1 NOTES: WE DISCUSSED SEVERAL ISSUES WITH MR. CM'S PAIN MANAGEMENT CASE. AT THIS TIME THE PATIENT WILL CONTINUE WITH THE SAME MEDICATION. PATIENT WILL START GABAPENTIN AT NIGHT FOR THE NEUROPATHIC PAIN HE IS FEELING. PATIENT WILL RECEIVE 6 MG TABLETS OF TIZANIDINE THE PATIENT REPORTS STILL HAVING A LOT OF MUSCLE SPASMS. PATIENT WAS REMINDED TO BRING ALL MEDICATIONS TO EVERY VISIT. MR. CM DENIES ABUSE OF ANY MEDICATION, DENIES USE OF ILLEGAL SUBSTACNES, AND STATES HE IS ONLY USING THE MEDICATION FOR PAIN MANAGEMENT. PATIENT WILL PERFORM A URINE TOXICOLOGY REPORT TODAY. WE DISCUSSED MOVING FORWARD WITH A RADIOFREQUENCY. PATIENT IS AWARE HE WILL NEED TO HAVE TWO DIAGNOSTIC TESTS PRIOR TO THE RADIOFREQUENCY WITH ADEQUATE RESULTS. WE DISCUSSED THE RISKS, BENENFITS, AND ALTNERATIVES OF THE INJECTION AND THE PATIENT WOULD LIKE TO PROCEED AT THIS TIME. INSTRUCTIONS WERE GIVEN, QUESTIONS WERE ANSWERED, PATIENT REPORTS UNDERSTANDING AND AGREES WITH THE PLAN. I, ARIA CARDENAS, DOCUMENTED THE ABOVE INFORMATION ACTING A SCRIBE FOR DR. ALVES. I HAVE REVIEWED THE ABOVE DOCUMENT, WRITTEN BY ARIA BARBOZA AND I VERIFY THAT IT IS ACCURATE. PREVENTIVE MEDICINE PAIN CLINIC TEACHING: PROCEDURE TEACHING 11/13/16 1140 PT. DECLINED PRINTED INFORMATION ON DIAGNOSTIC FACET BLOCK--DIAGNOSTIC. PROCEDURE REVIEWED WITH PATIENT AND HE VERBALIZED UNDERSTANDING. PRE-PROCEDURE INSTRUCTIONS REVIEWED WITH PT. AND HE VERBALIZED UNDERSTANDING.AD. PROCEDURE CODES FA211 ESTABILISHED PATIENT [facility] FACILITY CHARGE [id number] DOC MEDS VERIFIED W/PT OR RE G8730 PAIN ASSESS POS TOOL F/U PLAN DOC DISPOSITION & COMMUNICATION ELECTRONICALLY SIGNED BY DURAN ALVES MD ON 11/16/2016 AT 04:36 PM EDT DISCLAIMER : THIS IS A VISIT SUMMARY EXTRACTED FROM THE [employer] CHART. IT IS NOT A COPY OF THE [employer] PROGRESS NOTE. LEOBARDOD
== END ==
LOC: M PAIN 09:15
PROVIDERS: ATTEND Anesthesiology
DX: M79.1 Myalgia (principal); M47.816 Spondylosis without myelopathy or radiculopathy, lumbar region; M47.817 Spondylosis without myelopathy or radiculopathy, lumbosacral region; G89.29 Other chronic pain; M54.5 Low back pain; M54.2 Cervicalgia; F17.210 Nicotine dependence, cigarettes, uncomplicated; Z79.899 Other long term (current) drug therapy; Z88.2 Allergy status to sulfonamides; Z88.8 Allergy status to other drugs, medicaments and biological substances

== ENCOUNTER → 2017-02-09 | Outpatient (CLI) | payer OTHER, MEDICARE ==
[~2017-02-09] MED LIST changes: -/DULO30CA OR; -ADDE1TAB14 PO; -ADDE30CA3 PO; -ALLE25CA OR; -AMPH10TA PO; -ASPI325T24 PO; -BACL10TA2 PO; +BUPIVACAINE HCL 0.25% 30 ML VIAL As Ordered; -CELE1CAP4 PO; -CEPH500C PO; -CLEO150C PO; -CODE30TA3 PO; -CYCL10TA PO; -CYMB60CA3 PO; -DEXT10TA2 PO; -DILA4TAB13 PO; -DIVA500T3 PO; -DOCU10CA PO; -DULO20CA OR; -DULO30CA PO; -ESTA2TAB PO; -EXCETAB80 PO; -GEMF600T PO; -HYDR50CA2 PO; -IBUP-1022 PO; -IMIT6INJ SC; -IMIT6KIT2 SC; +ISOVUE-M 300 61% 15ML VIAL (Q9967) As Ordered; +LIDOCAINE 1% SDV INJ 30 ML VIAL As Ordered; -LUNE2TAB OR; -MELO7.5S PO; -MELOPOW XX; -METH75TA PO; -NORC10TA21 PO; -NUVI250T5 PO; -OXYC-517 PO; -OXYC20TA40 PO; -OXYC40TA29 PO; -PAIN CREAM TOP; -PAIN TOP; -PERC10TA26 PO; -PERC5TAB8 OR; -PERC7.5T11 PO; -PRAZ2CAP PO; -ROBA750T4 PO; -SENN-22 PO; -SKEL800T97 PO; -SOMA350T PO; -TRAM50TA2 OR; -TRAZ50TA11 PO; -TRIA0.2571 PO; -TYLE325T5 PO; -VALI10TA PO; -VITA-171 PO; -ZANA4TAB PO; -[UNRECOGNIZED DRUG - OTHER] OR; -mobic OR
== END ==
LOC: M PAIN 11:15
DX: G89.29 Other chronic pain (principal); M46.96 Unspecified inflammatory spondylopathy, lumbar region; M46.97 Unspecified inflammatory spondylopathy, lumbosacral region; F43.10 Post-traumatic stress disorder, unspecified; G47.33 Obstructive sleep apnea (adult) (pediatric); F17.210 Nicotine dependence, cigarettes, uncomplicated; Z88.2 Allergy status to sulfonamides; Z88.8 Allergy status to other drugs, medicaments and biological substances; Z79.891 Long term (current) use of opiate analgesic; Z79.899 Other long term (current) drug therapy
CPT/HCPCS: Q9967

== ENCOUNTER → 2017-02-18 | Outpatient (CLI) | payer OTHER, MEDICARE | LOC: M PAIN 09:45 | DX: M51.16 Intervertebral disc disorders with radiculopathy, lumbar region (principal); M51.17 Intervertebral disc disorders with radiculopathy, lumbosacral region; F43.10 Post-traumatic stress disorder, unspecified; G47.33 Obstructive sleep apnea (adult) (pediatric); F17.210 Nicotine dependence, cigarettes, uncomplicated; Z79.891 Long term (current) use of opiate analgesic; Z79.899 Other long term (current) drug therapy; Z88.2 Allergy status to sulfonamides; Z88.8 Allergy status to other drugs, medicaments and biological substances; Z87.820 Personal history of traumatic brain injury | CPT/HCPCS: G0463 ==

== ENCOUNTER → 2017-03-26 | Outpatient (CLI) | payer OTHER, MEDICARE | LOC: M PAIN 09:00 | DX: M51.16 Intervertebral disc disorders with radiculopathy, lumbar region (principal); M51.17 Intervertebral disc disorders with radiculopathy, lumbosacral region; F17.210 Nicotine dependence, cigarettes, uncomplicated; Z88.8 Allergy status to other drugs, medicaments and biological substances; Z79.891 Long term (current) use of opiate analgesic | CPT/HCPCS: G0463 ==

== ENCOUNTER → 2017-04-19 | Outpatient (CLI) | payer OTHER, MEDICARE | LOC: M PAIN 10:45 | DX: G89.29 Other chronic pain (principal); M47.816 Spondylosis without myelopathy or radiculopathy, lumbar region; M47.817 Spondylosis without myelopathy or radiculopathy, lumbosacral region; F43.12 Post-traumatic stress disorder, chronic; F17.210 Nicotine dependence, cigarettes, uncomplicated; Z79.899 Other long term (current) drug therapy; Z88.8 Allergy status to other drugs, medicaments and biological substances; Z86.14 Personal history of Methicillin resistant Staphylococcus aureus infection; Z87.820 Personal history of traumatic brain injury | CPT/HCPCS: Q9967 ==

== ENCOUNTER → 2017-04-27 | Outpatient (CLI) | payer OTHER, MEDICARE | LOC: M PAIN 09:00 | DX: M47.816 Spondylosis without myelopathy or radiculopathy, lumbar region (principal); M47.817 Spondylosis without myelopathy or radiculopathy, lumbosacral region; F43.10 Post-traumatic stress disorder, unspecified; G47.33 Obstructive sleep apnea (adult) (pediatric); F17.210 Nicotine dependence, cigarettes, uncomplicated; Z79.891 Long term (current) use of opiate analgesic; Z79.899 Other long term (current) drug therapy; Z88.2 Allergy status to sulfonamides; Z88.8 Allergy status to other drugs, medicaments and biological substances; Z87.820 Personal history of traumatic brain injury; Z87.898 Personal history of other specified conditions | CPT/HCPCS: G0463 ==

== ENCOUNTER → 2017-06-09 | Outpatient (CLI) | payer OTHER, MEDICARE ==
[~2017-06-09] MED LIST changes: +TRIAMCINOLONE ACETONIDE SUSP 40 MG/ML VIAL (J3301) As Ordered
== END | disposition home or self-care (01) ==
LOC: M PAIN 13:00
DX: G89.29 Other chronic pain (principal); M47.816 Spondylosis without myelopathy or radiculopathy, lumbar region; M47.817 Spondylosis without myelopathy or radiculopathy, lumbosacral region; F43.10 Post-traumatic stress disorder, unspecified; Z86.14 Personal history of Methicillin resistant Staphylococcus aureus infection; Z79.899 Other long term (current) drug therapy; Z88.2 Allergy status to sulfonamides; Z88.8 Allergy status to other drugs, medicaments and biological substances; F17.210 Nicotine dependence, cigarettes, uncomplicated
CPT/HCPCS: J3301

== ENCOUNTER → 2017-07-02 | Outpatient (CLI) | payer OTHER, MEDICARE | LOC: M PAIN 09:00 | DX: M47.816 Spondylosis without myelopathy or radiculopathy, lumbar region (principal); M47.817 Spondylosis without myelopathy or radiculopathy, lumbosacral region; M79.1 Myalgia; F43.10 Post-traumatic stress disorder, unspecified; Z87.820 Personal history of traumatic brain injury; G47.33 Obstructive sleep apnea (adult) (pediatric); F17.210 Nicotine dependence, cigarettes, uncomplicated; Z79.891 Long term (current) use of opiate analgesic; Z79.899 Other long term (current) drug therapy; Z88.2 Allergy status to sulfonamides; Z88.8 Allergy status to other drugs, medicaments and biological substances; Z86.59 Personal history of other mental and behavioral disorders | CPT/HCPCS: G0463 ==

== ENCOUNTER → 2017-08-17 | Outpatient (CLI) | payer OTHER, MEDICARE | LOC: M PAIN 09:00 | DX: M47.816 Spondylosis without myelopathy or radiculopathy, lumbar region (principal); M47.817 Spondylosis without myelopathy or radiculopathy, lumbosacral region; M79.1 Myalgia; F43.10 Post-traumatic stress disorder, unspecified; G47.33 Obstructive sleep apnea (adult) (pediatric); F17.210 Nicotine dependence, cigarettes, uncomplicated; Z79.899 Other long term (current) drug therapy; Z88.2 Allergy status to sulfonamides; Z88.8 Allergy status to other drugs, medicaments and biological substances; Z86.59 Personal history of other mental and behavioral disorders; Z86.69 Personal history of other diseases of the nervous system and sense organs | CPT/HCPCS: G0463 ==

== ENCOUNTER → 2017-09-13 | Outpatient (CLI) | payer OTHER, MEDICARE ==
[~2017-09-13] MED LIST changes: -TRIAMCINOLONE ACETONIDE SUSP 40 MG/ML VIAL (J3301) As Ordered
== END ==
LOC: M PAIN 08:45
DX: M47.816 Spondylosis without myelopathy or radiculopathy, lumbar region (principal); M47.817 Spondylosis without myelopathy or radiculopathy, lumbosacral region; F43.10 Post-traumatic stress disorder, unspecified; G47.33 Obstructive sleep apnea (adult) (pediatric); Z86.14 Personal history of Methicillin resistant Staphylococcus aureus infection; Z91.5 Personal history of self-harm; Z87.820 Personal history of traumatic brain injury; Z79.899 Other long term (current) drug therapy; F17.210 Nicotine dependence, cigarettes, uncomplicated; Z88.2 Allergy status to sulfonamides; Z88.8 Allergy status to other drugs, medicaments and biological substances
CPT/HCPCS: Q9967